=== PATIENT | female | born 1990 | race Caucasian/White ===

== ENCOUNTER 2025-01-01 21:50 | Observation (INO) | payer MEDICAID, SELFPAY ==
[2025-01-01 21:52] VITALS: BP 141/89; PULSE 94; RESP 20; TEMP 36.8; O2SAT 99; BMI 32.8
--- OUTSIDE RECORDS SUMMARY | 2025-01-01 22:12 | XMS_ITS | Clinical Summary ---
Author Organization [employer] [facility] Address [address] [place] [address] Phone Care Team Providers Care Shingle Cutter Name Role Phone Unavailable Unavailable Conditions or Problems No information available. Medications No information available. Medications Administered No information available. Allergies, Adverse Reactions, Alerts No information available. Results No information available. Plan of Care No information available. Procedures No information available. Vital Signs No information available. Immunizations No information available. Advance Directives No information available.
--- OUTSIDE RECORDS SUMMARY | 2025-01-01 22:13 | XMS_ITS | Clinical Summary ---
Author Organization Healthcare Address [address] [place] [address] Care Team Providers Care Vice President Diversity Name Role Phone Tonie Sanchez APRN Primary Care Provider Family History Medical History Relation Name Comments Depression Father Hypertension Father Lung disease Father Other cancer Father Stroke Father Relation Name Status Comments Father Social History Tobacco Use Types Packs/Day Years Used Date Smoking Tobacco: Every Day Alcohol Use Standard Drinks/Week Comments Yes 0 (1 standard drink = 0.6 oz pur e alcohol) Comments Unknown Sex and Gender Information Value Date Recorded Sex Assigned at Not on file Legal Sex Female 8:30 PM EDT Gender Identity Not on file Sexual Orientation Not on file Last Filed Vital Signs Vital Sign Reading Time Taken Comments Blood Pressure - - Pulse - - Temperature - - Respiratory Rate - - Oxygen Saturation - - Inhaled Oxygen Concentration - - Weight 66 kg (145 lb 8.1 oz) 01/22/2017 10:27 AM EDT Height 165.1 cm (5' 5 ) 01/22/2017 10:27 AM EDT Body Mass Index 24.21 01/22/2017 10:27 AM EDT Plan of Treatment Not on file Care Teams Vice President Diversity Relationship Specialty Start Date End Date Tonie Sanchez APRN [address] [place] [address] PCP - General 08/31/20
--- OUTSIDE RECORDS SUMMARY | 2025-01-01 22:14 | XMS_ITS | Clinical Summary ---
Author Organization [facility] Address [address] [place] [address] Care Team Providers Care Quill Reamer Name Role Phone None, Physician Primary Care Provider Unavailabl e Allergies Active Allergy Reactions Criticality Noted Date Comments Aripiprazole 04/17/2013 Aspirin 04/17/2013 Amoxicillin-Pot Clavulanate 04/17/20 13 Iodinated Contrast Media 04/17/2013 [place] 04/17/2013 Quetiapine Fumerate 04/17/2013 Sulfa Antibiotics 04/17/2013 Medications albuterol (PROVENTIL HFA;VENTOLIN HFA) 108 (90 BASE) MCG/ACT inhaler Inhale 2 puffs into the lungs every 6 (six) hours as needed. Active Social History Tobacco Use Types Packs/Day Years Used Date Smoking Tobacco: Every Day Cigarettes Alcohol Use Standard Drinks/Week Comments No 0 (1 standard drink = 0.6 oz pur e alcohol) Comments No Sex and Gender Information Value Date Recorded Sex Assigned at Not on file Legal Sex Female 10:31 AM EST Gender Identity Not on file Sexual Orientation Not on file Last Filed Vital Signs Vital Sign Reading Time Taken Comments Blood Pressure 119/73 10/30/2013 4:00 PM EDT Pulse 89 10/30/2013 4:00 PM EDT Temperature 36.9 C (98.4 F) 10/30/2013 4:00 PM EDT Respiratory Rate 18 10/30/2013 4:00 PM EDT Oxygen Saturation 99% 04/17/2013 2:08 PM EST Inhaled Oxygen Concentration - - Weight 68 kg (150 lb) 04/17/2013 10:33 AM EST Height 165.1 cm (5' 5 ) 04/17/2013 10:33 AM EST Body Mass Index 24.96 04/17/2013 10:33 AM EST Plan of Treatment Health Maintenance Due Date Last Done Comments Hepatitis B (HepB) Vaccine ( 1 of 3 - 19+ 3-dose series) 01/03/2008 Tdap/Td Vaccine >11 yo (1 - Tdap) 01/03/2008 Cervical Cancer Screening 2010 HPV Vaccine (1 - 3-dose SCDM series) 01/03/2016 Annual SDOH Screening 04/20/2024 Influenza Vaccine (#1) 2024 Haemophilus Influenzae Type B (Hib) Vaccine Aged Out No longer eligible b ased on patient's age to complete this topic Hepatitis A (HepA) Vaccine Aged Out N o longer eligible based on patient's age to complete this topic Meningococcal ACWY Aged Out No longer eligible based on patient's age to complete this topic Pneumococcal Vaccines 6-49 yo Risk Aged Out No longer eligible based on patient's age to complete this topic Polio (IPV) Aged Out No longer eligi ble based on patient's age to complete this topic Rotavirus (RV) Vaccine Aged Out No lo nger eligible based on patient's age to complete this topic Insurance [facility] [place] [address] Care Teams Quill Reamer Relationship Specialty Start Date End Date None, Physician PCP - General 04/17/13
--- OUTSIDE RECORDS SUMMARY | 2025-01-01 22:14 | XMS_ITS | Clinical Summary ---
Author Organization [facility] Address [address] [place] [address] Care Team Providers Care Papeterie Table Assembler Name Role Phone Tonie Sanchez APRN Primary Care Provider [phone] Allergies Active Allergy Reactions Criticality Noted Date Comments Aripiprazole 01/09/2017 Lorazepam 01/09/2017 Amoxicillin-Pot Clavulanate 01/10/20 17 Contrast Dye (Echo Or Unknown Ct/Mr) 01/09/2017 and IV Lurasidone Hcl 01/09/2017 [place] 01/09/2017 Pertussis Vaccines 01/09/2017 Promethazine 01/09/2017 Saline 01/09/2017 Quetiapine Fumarate 01/09/2017 Sulfa Antibiotics 01/09/2017 Medications diazePAM (VALIUM) 2 MG tablet Take 2 mg by mouth 2 (Two) Times a Day As Needed for Anxiety. Active sertraline (ZOLOFT) 100 MG tablet Take 100 mg by mouth Daily. Active lamoTRIgine (LaMICtal) 100 MG tablet Take 100 mg by mouth Daily. Active Active Problems No known active problems Family History Medical History Relation Name Comments Alcohol abuse Father Cirrhosis Father of the liver Diabetes Mother Hyperlipidemia Mother Hypertension Mother Stroke Mother ADD / ADHD Sister Bipolar disorder Sister Relation Name Status Comments Father Alive Mother Alive Sister Alive blood transfusi on Social History Tobacco Use Types Packs/Day Years Used Date Smoking Tobacco: Every Day Cigarettes Smokeless Tobacco: Never Comments:smokes 1-2 PPD Alcohol Use Standard Drinks/Week Comments No 0 (1 standard drink = 0.6 oz pur e alcohol) Abuse Screen Answer Date Recorded Unsafe at Home or Work/School Not on file Feels Threatened by Someone? Not on file 11/2022 Does Anyone Keep You from Co ntacting Others or Doint Things Outside the Home? Not on file 01/25/2023 Physical Sign of Abuse Present Not on file 1 Housing Stability Answer Date Recorded Current Living Arrangements Not on file 11/2022 Potentially Unsafe Housing Conditions Not on delfino e 01/25/2023 Family and Community Support Answer Cedrick e Recorded Help with Day-to-Day Activities Not on file 01/25/2023 Lonely or Isolated Not on file 01/25/2023 Employment Answer Date Recorded Do you want help finding or keeping work or a tonya b? Not on file 01/25/2023 Disabilities Answer Date Recorded Concentrating, Remembering, or Making Decisions Difficulty Not on file 01/25/2023 Doing Errands Independently Difficulty Not on fi le 01/25/2023 Education Answer Date Recorded Help with school or training? Not on file Preferred Language Not on file 01/25/2023 Comments Unknown Sex and Gender Information Value Date Recorded Sex Assigned at Not on file Legal Sex Female 10:53 AM EDT Gender Identity Not on file Sexual Orientation Not on file Last Filed Vital Signs Vital Sign Reading Time Taken Comments Blood Pressure 124/76 01/09/2017 12:59 PM EDT Pulse 63 01/09/2017 12:59 PM EDT Temperature - - Respiratory Rate - - Oxygen Saturation - - Inhaled Oxygen Concentration - - Weight 66.2 kg (146 lb) 01/09/2017 12:59 PM EDT Height 165.1 cm (5' 5 ) 01/09/2017 12:59 PM EDT Body Mass Index 24.3 01/09/2017 12:59 PM EDT Plan of Treatment Health Maintenance Due Date Last Done Comments Annual Gynecologic Pelvic an d Breast Exam 1989 TDAP/TD VACCINES (1 - Tdap) 01/03/2008 ANNUAL PHYSICAL 01/09/2017 HEPATITIS C SCREENING 01/09/2017 COVID-19 Vaccine (2023-2 5 season) 2024 INFLUENZA VACCINE 01/18/2025 Pneumococcal Vaccine 0-49 Aged Out No longer eligible based on patient's age to complete this topic Care Teams Papeterie Table Assembler Relationship Specialty Start Date End Date Tonie Sanchez APRN [address] [place] [address] PCP - General Family Medicine 01/02/17
[2025-01-01 22:23] VITALS: BP 121/92; PULSE 100; RESP 13; O2SAT 100
--- NOTE | 2025-01-01 22:32 | CT_ITS ---
PROCEDURE INFORMATION: Exam: CT Abdomen And Pelvis Without Contrast Exam date and time: 01/01/2025 11:19 PM Age: 34 years old Clinical indication: Abdominal pain; Periumbilical; Additional info: Diffuse pain worse periumbilical TECHNIQUE: Imaging protocol: Computed tomography of the abdomen and pelvis without contrast. Radiation optimization: All CT scans at this facility use at least one of these dose optimization techniques: automated exposure control; mA and/or kV adjustment per patient size (includes targeted exams where dose is matched to clinical indication); or iterative reconstruction. COMPARISON: No relevant prior studies available. FINDINGS: Liver: Unremarkable. No mass. Gallbladder and biliary ducts: Unremarkable. No calcified stones. No ductal dilation. Pancreas: Unremarkable. No ductal dilation. Spleen: Unremarkable. No splenomegaly. Adrenal glands: Unremarkable. No mass. Kidneys and ureters: No nephroureterolithiasis. No hydronephrosis. Stomach and bowel: Nonobstructive fluid-filled stomach, small and large bowel loops Appendix: Appendix mildly distended measuring up to 0.9 cm with equivocal periappendiceal fat stranding. Intraperitoneal space: Unremarkable. No free air. No significant fluid collection. Vasculature: Unremarkable. No abdominal aortic aneurysm. Lymph nodes: Reactive shotty mesenteric lymph nodes. Urinary bladder: Unremarkable as visualized. Reproductive: Unremarkable as visualized. Bones/joints: Unremarkable. No acute fracture. Soft tissues: Unremarkable. IMPRESSION: Appendix with mild distension with equivocal periappendiceal fat stranding. Fluid-filled appendix from secondary low-grade gastroenterocolitis versus early appendicitis in differential considerations. Appendiceal mucosal not evaluated secondary to with holding of intravenous contrast.
[2025-01-01 22:45] LABS: Microscopic, Urine URINE MICROSCOPIC (MICROSCOPIC)
--- NOTE | 2025-01-01 22:51 | HMH.EDGENADL ---
Discharge Plan Disposition Patient Disposition: Admitted Condition: Fair Clinical Impressions Clinical Impression: Acute appendicitis Discharge ED Provider: Sid Bolivar General Adult HPI <Sid Bolivar MD - Last Filed: 01/01/25 23:29> General Chief complaint: PAIN Stated complaint: abdominal pain ,back pain Time Seen by Provider: 01/01/25 22:18 Mode of Arrival: Ambulatory Source of Information: Patient Description of Symptoms (Recalled from ER Triage Doc. by RN): yury presents to the ED for complaints of abdominal pain that starts around her umbilicus, and radiates to her bilateral flanks. patient states after she eats she feels like she is gonna pass out. patient stated the near-syncope started today. patient states she feels like shes been stuck in an oven . History of Present Illness HPI narrative: Patient is a 34-year-old female with past medical history of schizophrenia on medical therapy who presents emergency department for evaluation of abdominal pain. Onset was acute over the last few days. Minimal bowel movement in the last few days she normally has 1 daily. Abdominal pain is periumbilical radiating to her flanks. No dysuria. Abdominal surgical history of previous cholecystectomy. No chest pain reported. No vomiting. No other acute complaints at this time. Please note that above description of symptoms, in this electronic medical record under categorization of recalled from ER triage doctor by RN are reflective of an initial nursing assessment, however, is not reflective of my full history and physical exam that was personally taken and clarified. Consequentially, this preceding description of symptoms, which may include the patient's categorized chief complaint in the EMR, do not reflect my personal clinical impression, and the ultimate description of history of present illness and patient stated complaints should be deferred to this section of the note. Unless stated otherwise or congruent with this section of the note, additional signs, symptoms, or incongruence should be interpreted as inaccurate with my clinical impression. Related Data Allergies Allergy/AdvReac Type Severity Reaction Status Date / Time amoxicillin (AMOXICILLIN) Allergy Unknown Unknown Verified 01/01/25 22:39 allergy reaction aspirin (ASPIRIN) Allergy Unknown Unknown Verified 01/01/25 22:39 allergy reaction clavulanic acid (CLAVULANIC Allergy Unknown Unknown Verified 01/01/25 22:39 ACID) allergy reaction iodine (IODINE) Allergy Unknown Unknown Verified 01/01/25 22:39 allergy reaction lithium (LITHIUM) Allergy Unknown Unknown Verified 01/01/25 22:39 allergy reaction oxycodone (OXYCODONE) Allergy Unknown Unknown Verified 01/01/25 22:39 allergy reaction pertussis vaccine,adsorbed Allergy Unknown Unknown Verified 01/01/25 22:39 (PERTUSSIS VACCINE,ADSORBED) allergy reaction promethazine (PROMETHAZINE) Allergy Unknown Unknown Verified 01/01/25 22:39 allergy reaction quetiapine (QUETIAPINE) Allergy Unknown Unknown Verified 01/01/25 22:39 allergy reaction Sulfa (Sulfonamide Allergy Unknown Unknown Verified 01/01/25 22:39 Antibiotics) (SULFA allergy (SULFONAMIDE ANTIBIOTICS)) reaction tetracycline (TETRACYCLINE) Allergy Unknown Unknown Verified 01/01/25 22:39 allergy reaction PFSH <Sid Bolivar MD - Last Filed: 01/01/25 23:29> PFSH Disclaimer: The information contained in this section may have been updated after the patient was seen, as this information can be updated by other users. Social History (Updated 01/01/25 @ 23:29 by Sid Bolivar MD) Smoking Status: Current every day smoker alcohol intake: never current occupational status: other Travel in the last 8 weeks?: None Have you lived/traveled outside US in past 30 days?: No Contact w/someone who lives/traveled outside US past 30 days?: No Exposure to someone with infectious disease in past 14 days?: No Do you have a fever (greater than 100.4 F or 38 C)?: No Have you tested positive for COVID-19?: No Exposed to someone with COVID-19 in past 14 days?: No Do you have a sore throat?: No Do you have a cough?: No Do you have any weakness?: No Do you have any diarrhea?: No Are you experiencing any unusual bleeding?: No Do you have any muscle aches/pain?: No Do you have any abdominal pain?: No Are you experiencing loss of taste or smell?: No <Sid Bolivar MD - Last Filed: 01/01/25 23:29> ROS Obtained: Yes Systems reviewed as appropriate & no additional complaints except as documented Physical Exam <Sid Bolivar MD - Last Filed: 01/01/25 23:29> General General appearance: alert Head Head exam: atraumatic and normocephalic Eye Eye exam: Present PERRL and EOMI ENT ENT exam: Present mucous membranes moist Neck Neck exam: Present normal inspection Chest Chest inspection: Present normal inspection and symmetric chest wall rise Respiratory Respiratory exam: Present normal lung sounds bilaterally; Absent respiratory distress Cardiovascular Cardiovascular exam: Present regular rate and normal rhythm Abdominal Exam Abdominal exam: Present soft and tenderness (Mild, diffuse); Absent guarding or rebound Extremities Exam Extremities exam: Present normal inspection Neurological Exam Neurological exam: Present alert Psychiatric Psychiatric exam: Present normal affect Skin Skin exam: Present warm and dry Medical Decision Making <Sid Bolivar MD - Last Filed: 01/01/25 23:29> Medical Records Screening: Per USPSTF and CDC recommendations, given the prevalence of disease in our region, it is our hospital?s policy to screen for HIV and viral Hepatitis for all patients aged 18 and over and those with ongoing risk factors. [place] Inquiry Pt receiving controlled substance: No Vital Signs: 01/01/25 21:52 01/01/25 22:23 Temperature 98.2 F Temperature Source Temporal Artery Scan Pulse Rate 100 H Pulse Rate [Right Radial] 94 H Respiratory Rate 20 13 Blood Pressure 121/92 H Blood Pressure [Right Arm] 141/89 H Blood Pressure Mean [Right Arm] 106 Blood Pressure Source [Right Arm] Automatic Cuff Blood Pressure Position [Right Arm] Sitting 02 Sat by Pulse Oximetry 99 100 Oxygen Delivery Method Room Air Room Air Lab Data Lab Results 01/01/25 22:06: Urine Color Yellow, Urine Appearance Clear, Urine pH 6.0, Ur Specific [place] >= 1.030, Urine Protein Trace, Urine Glucose (UA) Negative, Urine Ketones Trace, Urine Blood Negative, Urine Nitrate Negative, Urine Bilirubin 2+ A, Urine Urobilinogen 0.2, Ur Leukocyte Esterase Negative, Urine RBC None, Urine WBC 5-10, Ur Squamous Epith Cells 10-20, Urine Bacteria 2+, Urine HCG, Qual Negative 01/01/25 22:52: WBC 5.7, RBC 4.59, Hgb 13.4, Hct 39.4, MCV 85.8, MCH 29.2, MCHC 34.0, RDW 13.4, Plt Count 285, MPV 10.8 H, Neut % (Auto) 39.3, Lymph % (Auto) 48.1, [place] % (Auto) 10.6 H, Eos % (Auto) 1.4, Baso % (Auto) 0.4, Neut # (Auto) 2.2, Lymph # (Auto) 2.7, [place] # (Auto) 0.6, Eos # (Auto) 0.1, Baso # (Auto) 0.0, Sodium 140, Potassium 2.8 L*, Chloride 105, Carbon Dioxide 25, Anion Gap 12.8, BUN 7, Creatinine 0.90, Estimated Creat Clear 123, Estimated GFR 71, Est GFR ( Amer) 86, Glucose 104 H, Calcium 9.1, Total Bilirubin 0.5, AST 49 H, ALT 42, Alkaline Phosphatase 63, Troponin I < 0.01, Total Protein 7.7, Albumin 4.5, Globulin 3.2, Albumin/Globulin Ratio 1.4, Lipase 53 01/01/25 22:52 01/01/25 22:52 Orders (Tests/Meds): ED MEDICATIONS Generic Name Dose Route Start Last Admin Trade Name Freq PRN Reason Stop Dose Admin Metronidazole 500 mg in 100 mls @ 100 mls/hr 01/02/25 00:31 Flagyl 500mg/100ml Ivpb IV 01/02/25 01:30 ONCE ONE Discontinued Medications Generic Name Dose Route Start Last Admin Trade Name Freq PRN Reason Stop Dose Admin Lactated Ringer's 1,000 mls @ 999 mls/hr 01/01/25 22:27 01/01/25 23:05 Lactated Ringer's 1000 Ml Bag IV 01/01/25 23:27 999 mls/hr .Q1H1M ONE Administration Cefepime HCl 2 gm/ Sodium 100 mls @ 200 mls/hr 01/02/25 00:31 01/02/25 01:03 Chloride IV 01/02/25 01:00 200 mls/hr ONCE ONE Administration Morphine Sulfate 4 mg 01/01/25 22:27 01/01/25 23:05 Morphine 4mg/Ml Syringe IV 01/01/25 22:28 4 mg ONCE ONE Administration Ondansetron HCl 4 mg 01/01/25 22:27 01/01/25 23:05 Ondansetron 4mg/2ml Vial IV 01/01/25 22:28 4 mg ONCE ONE Administration Potassium Chloride 60 meq 01/01/25 23:38 01/01/25 23:43 Potassium Chloride 20meq Tab PO 01/01/25 23:39 60 meq ONCE ONE Administration ORDERS Category Date Time Status CT abdomen pelvis wo con Stat Cat Scan 01/01/25 22:32 Completed CBC w/Auto Diff [Complete Blood Count Auto Diff] Stat Lab 01/01/25 22:52 Completed CMP [Comprehensive Metabolic Panel] Stat Lab 01/01/25 22:52 Completed Lipase Stat Lab 01/01/25 22:52 Completed Trop I [Troponin I] Stat Lab 01/01/25 22:52 Completed UA [Urinalysis and Microscopic] Stat Lab 01/01/25 22:06 Completed Urine , HCG Qual. Stat Lab 01/01/25 22:06 Completed Urine Culture Stat Micro 01/01/25 22:06 Received EKG Request [ECG Request] Stat Y 01/01/25 23:06 Ordered Medical Decision Narrative: Patient is a 34-year-old female with past medical history of scrota above presents emergency department for evaluation of abdominal pain. Patient is hemodynamically stable nontoxic-appearing upon arrival, afebrile. Patient has a mild periumbilical tenderness, no rebound, no guarding. Differential clues incomplete bowel obstruction, gastroenteritis, urinary tract infection, among others. Workup will be conducted with hematologic labs, CT abdomen pelvis without IV contrast given her history of contrast allergy, urinalysis. Initial interventions include pain control, Zofran, crystalloid bolus. Workup was largely pending at time of transfer of care to the oncoming physician, Dr. Lobo. <Brett Lobo MD - Last Filed: 01/02/25 01:25> Vital Signs: 01/01/25 21:52 01/01/25 22:23 Temperature 98.2 F Temperature Source Temporal Artery Scan Pulse Rate 100 H Pulse Rate [Right Radial] 94 H Respiratory Rate 20 13 Blood Pressure 121/92 H Blood Pressure [Right Arm] 141/89 H Blood Pressure Mean [Right Arm] 106 Blood Pressure Source [Right Arm] Automatic Cuff Blood Pressure Position [Right Arm] Sitting 02 Sat by Pulse Oximetry 99 100 Oxygen Delivery Method Room Air Room Air Lab Data Lab Results 01/01/25 22:06: Urine Color Yellow, Urine Appearance Clear, Urine pH 6.0, Ur Specific [place] >= 1.030, Urine Protein Trace, Urine Glucose (UA) Negative, Urine Ketones Trace, Urine Blood Negative, Urine Nitrate Negative, Urine Bilirubin 2+ A, Urine Urobilinogen 0.2, Ur Leukocyte Esterase Negative, Urine RBC None, Urine WBC 5-10, Ur Squamous Epith Cells 10-20, Urine Bacteria 2+, Urine HCG, Qual Negative 01/01/25 22:52: WBC 5.7, RBC 4.59, Hgb 13.4, Hct 39.4, MCV 85.8, MCH 29.2, MCHC 34.0, RDW 13.4, Plt Count 285, MPV 10.8 H, Neut % (Auto) 39.3, Lymph % (Auto) 48.1, [place] % (Auto) 10.6 H, Eos % (Auto) 1.4, Baso % (Auto) 0.4, Neut # (Auto) 2.2, Lymph # (Auto) 2.7, [place] # (Auto) 0.6, Eos # (Auto) 0.1, Baso # (Auto) 0.0, Sodium 140, Potassium 2.8 L*, Chloride 105, Carbon Dioxide 25, Anion Gap 12.8, BUN 7, Creatinine 0.90, Estimated Creat Clear 123, Estimated GFR 71, Est GFR ( Amer) 86, Glucose 104 H, Calcium 9.1, Total Bilirubin 0.5, AST 49 H, ALT 42, Alkaline Phosphatase 63, Troponin I < 0.01, Total Protein 7.7, Albumin 4.5, Globulin 3.2, Albumin/Globulin Ratio 1.4, Lipase 53 Orders (Tests/Meds): ED MEDICATIONS Generic Name Dose Route Start Last Admin Trade Name Freq PRN Reason Stop Dose Admin Metronidazole 500 mg in 100 mls @ 100 mls/hr 01/02/25 00:31 Flagyl 500mg/100ml Ivpb IV 01/02/25 01:30 ONCE ONE Discontinued Medications Generic Name Dose Route Start Last Admin Trade Name Freq PRN Reason Stop Dose Admin Lactated Ringer's 1,000 mls @ 999 mls/hr 01/01/25 22:27 01/01/25 23:05 Lactated Ringer's 1000 Ml Bag IV 01/01/25 23:27 999 mls/hr .Q1H1M ONE Administration Cefepime HCl 2 gm/ Sodium 100 mls @ 200 mls/hr 01/02/25 00:31 01/02/25 01:03 Chloride IV 01/02/25 01:00 200 mls/hr ONCE ONE Administration Morphine Sulfate 4 mg 01/01/25 22:27 01/01/25 23:05 Morphine 4mg/Ml Syringe IV 01/01/25 22:28 4 mg ONCE ONE Administration Ondansetron HCl 4 mg 01/01/25 22:27 01/01/25 23:05 Ondansetron 4mg/2ml Vial IV 01/01/25 22:28 4 mg ONCE ONE Administration Potassium Chloride 60 meq 01/01/25 23:38 01/01/25 23:43 Potassium Chloride 20meq Tab PO 01/01/25 23:39 60 meq ONCE ONE Administration ORDERS Category Date Time Status CT abdomen pelvis wo con Stat Cat Scan 01/01/25 22:32 Completed CBC w/Auto Diff [Complete Blood Count Auto Diff] Stat Lab 01/01/25 22:52 Completed CMP [Comprehensive Metabolic Panel] Stat Lab 01/01/25 22:52 Completed Lipase Stat Lab 01/01/25 22:52 Completed Trop I [Troponin I] Stat Lab 01/01/25 22:52 Completed UA [Urinalysis and Microscopic] Stat Lab 01/01/25 22:06 Completed Urine , HCG Qual. Stat Lab 01/01/25 22:06 Completed Urine Culture Stat Micro 01/01/25 22:06 Received EKG Request [ECG Request] Stat Y 01/01/25 23:06 Ordered Medical Decision Narrative: Patient is a 34-year-old female with past medical history of scrota above presents emergency department for evaluation of abdominal pain. Patient is hemodynamically stable nontoxic-appearing upon arrival, afebrile. Patient has a mild periumbilical tenderness, no rebound, no guarding. Differential clues incomplete bowel obstruction, gastroenteritis, urinary tract infection, among others. Workup will be conducted with hematologic labs, CT abdomen pelvis without IV contrast given her history of contrast allergy, urinalysis. Initial interventions include pain control, Zofran, crystalloid bolus. Workup was largely pending at time of transfer of care to the oncoming physician, Dr. Lobo. Lobo: Upon my assumption of care patient is stable and resting comfortably. I agree with the assessment and plan from Dr. Bolivar. I reviewed labs which demonstrate no leukocytosis or anemia, patient has hypokalemia treated with oral repletion. Troponin undetectably low. UA contaminated with squamous cells, no findings of infection. CT abdomen pelvis personally interpreted does not demonstrate significant stool burden, see radiology read for final interpretation which comments and findings concerning for appendicitis with appendiceal dilation and periappendiceal fat stranding. Cefepime and Flagyl ordered. I reviewed this with the patient, she is willing to be admitted here. I discussed this case with Dr. Werner who recommended admission for antibiotics and surgery in the morning. I discussed this case with the hospitalist who graciously except the patient for admission. She was admitted in stable condition. Critical Care <Sid Bolivar MD - Last Filed: 01/01/25 23:29> Critical Care Time Critical Care Time: No
[2025-01-01 23:05] LABS: Color,Urine YELLOW (Yellow); Glucose,Urine (UA) Negative (Negative); Ketones,Urine TRACE (Negative); Leukocyte Esterase,Urine Negative (Negative); PH,Urine 6.0 (5.0-8.5); Protein,Urine TRACE (Negative); Specific Gravity, Urine >= 1.030 (1.005-1.030); Urobilinogen,Urine 0.2 EU/dl (0.2)
[2025-01-01] MEDS: MORPHINE 4MG/ML SYRINGE 4 MG IV (23:05)
[2025-01-01] MEDS: ONDANSETRON 4MG/2ML VIAL 4 MG IV (23:05)
[2025-01-01] MEDS: LACTATED RINGERS 1000ML 1,000 ML 999 ML IV (23:05)
[2025-01-01 23:06] LABS: Hematocrit 39.4 % (37.0-47.0); Hemoglobin 13.4 g/dL (12.2-16.2); Immature Granulocytes % 0.2 %; Mean Corpuscular HGB Conc 34.0 g/dL (31.8-35.4); Mean Corpuscular Hemoglobin 29.2 pg (27.0-31.2); Mean Corpuscular Volume 85.8 fl (81-99); Nucleated Red Blood Cells % 0 %; Platelet Count 285 K/mm3 (142-424); Red Blood Count 4.59 M/mm3 (4.20-5.40); Red Cell Distribution Width-SD 41.9 fL; White Blood Count 5.7 K/mm3 (4.8-10.8)
--- NOTE | 2025-01-01 23:06 | ECG_ITS ---
APPROVED REPORT Exam: Resting ECG HR:71 bpm ECG Measurements Heart Rate 71 AXES IL 142 P 72 QRSd 85 QRS 79 QT 417 T 58 QTc 440 Conclusion SINUS RHYTHM NONSPECIFIC ST & T-WAVE ABNORMALITY No STEMI Electronically signed by : MICHAEL KAN, 01/02/2025 03:37:32
[2025-01-01 23:07] LABS: Bilirubin,Urine 2+ (Negative)
[2025-01-01 23:08] LABS: Albumin Level 4.5 g/dl (3.5-5.0); Chloride 105 mmol/L (98-107); Sodium 140 mmol/L (136-145)
[2025-01-01 23:08] LABS: Bacteria,Urine 2+ /lpf
[2025-01-01 23:09] LABS: Urine Pregnancy, HCG Qual. Negative (Negative)
[2025-01-01 23:11] LABS: Alanine Aminotransferase 42 U/L (12-78); Albumin/Globulin Ratio 1.4 (1.1-1.8); Alkaline Phosphatase 63 U/L (38-126); Anion Gap 12.8 mEq/L (5-15); Aspartate Amino Transferase 49 U/L (14-36); Bilirubin,Total 0.5 mg/dl (0.2-1.3); Blood Urea Nitrogen 7 mg/dl (7-17); Carbon Dioxide 25 mmol/L (22.0-30.0); Creatinine Clearance Estimated 123 mL/min (50-200); Creatinine,Serum 0.90 mg/dl (0.52-1.04); Estimated Glomerular Filt Rate 71 ml/min (>60); GFR (African American) 86 ML/MIN (>60); Globulin 3.2 g/dL (1.3-3.2); Lipase 53 U/L (23-300); Total Protein,Serum 7.7 g/dl (6.3-8.2)
[2025-01-01 23:12] LABS: Calcium 9.1 mg/dl (8.4-10.2); Glucose 104 mg/dl (74-100)
[2025-01-01 23:13] LABS: Potassium 2.8 mmoL/L (3.5-5.1)
[2025-01-01 23:34] LABS: Troponin I < 0.01 ng/ml (0.00-0.034)
[2025-01-01] MEDS: POTASSIUM CHLORIDE 20MEQ TAB 60 MEQ PO (23:43)
[2025-01-02] VITALS (17 sets, daily range): BP systolic 95–144; BP diastolic 58–86; PULSE 54–87; RESP 14–18; TEMP 36.4–38; O2SAT 95–100; BMI 32.8
[2025-01-02] MEDS: CEFEPIME HCL 2 GM in 0.9 % SODIUM CHLORIDE 100 ML IV (01:03)
--- NOTE | 2025-01-02 01:38 | PC.NURSE ---
report called to Babita REZA
--- NOTE | 2025-01-02 02:08 | P.HP_ITS ---
<Statement entered by Luis Alberto Hartman MD - 01/02/25 12:10> Agree with the plan of care as outlined by the [employer]. History of Present Illness *Admission Date: 01/02/25 *Reason for visit:: Abdominal pain *History of present illness: This is a 35-year-old female with past medical history of schizophrenia and homelessness who presents emergency department today with complaints of 3 days of periumbilical pain. She reports associated poor p.o. intake and constipati on. Also endorses pain that radiates into her lower right and left quadrants. Denies any fever. Denies any melena or BRBPR. Emergency Department workup notable for potassium of 2.8.. CT abdomen notable forappendicitis with appendiceal dilatation and periappendiceal fat stranding.. Dr. Werner was consulted in the emergency department and recommends admission for IV antibiotics and likely surgery in AM. She is admitted to the hospital service at this time [facility] Disclaimer: The information contained in this section may have been updated after the patient was seen, as this information can be updated by other users. Social History (Updated 01/01/25 @ 23:29 by Sid Bolivar MD) Smoking Status: Current every day smoker alcohol intake: never current occupational status: other Travel in the last 8 weeks?: None Have you lived/traveled outside US in past 30 days?: No Contact w/someone who lives/traveled outside US past 30 days?: No Exposure to someone with infectious disease in past 14 days?: No Do you have a fever (greater than 100.4 F or 38 C)?: No Have you tested positive for COVID-19?: No Exposed to someone with COVID-19 in past 14 days?: No Do you have a sore throat?: No Do you have a cough?: No Do you have any weakness?: No Do you have any diarrhea?: No Are you experiencing any unusual bleeding?: No Do you have any muscle aches/pain?: No Do you have any abdominal pain?: No Are you experiencing loss of taste or smell?: No Review of Systems Review of Systems Review of systems:: pertinent systems reviewed and negative unless documented below Review of systems (narrative): Negative except for HPI Meds Home Medications and Allergies New Prescriptions to Start Prescriptions: Allergies Allergy/AdvReac Type Severity Reaction Status Date / Time amoxicillin (AMOXICILLIN) Allergy Unknown Unknown Verified 01/01/25 22:39 allergy reaction aspirin (ASPIRIN) Allergy Unknown Unknown Verified 01/01/25 22:39 allergy reaction clavulanic acid (CLAVULANIC Allergy Unknown Unknown Verified 01/01/25 22:39 ACID) allergy reaction iodine (IODINE) Allergy Unknown Unknown Verified 01/01/25 22:39 allergy reaction lithium (LITHIUM) Allergy Unknown Unknown Verified 01/01/25 22:39 allergy reaction oxycodone (OXYCODONE) Allergy Unknown Unknown Verified 01/01/25 22:39 allergy reaction pertussis vaccine,adsorbed Allergy Unknown Unknown Verified 01/01/25 22:39 (PERTUSSIS VACCINE,ADSORBED) allergy reaction promethazine (PROMETHAZINE) Allergy Unknown Unknown Verified 01/01/25 22:39 allergy reaction quetiapine (QUETIAPINE) Allergy Unknown Unknown Verified 01/01/25 22:39 allergy reaction Sulfa (Sulfonamide Allergy Unknown Unknown Verified 01/01/25 22:39 Antibiotics) (SULFA allergy (SULFONAMIDE ANTIBIOTICS)) reaction tetracycline (TETRACYCLINE) Allergy Unknown Unknown Verified 01/01/25 22:39 allergy reaction Exam Data for Last 24 hours Vital signs and Labs for Last 24 Hours: Temp Pulse Resp BP Pulse Ox O2 Del Method 98.9 F 87 17 144/78 H 100 Room Air 01/02/25 01:39 01/02/25 01:39 01/02/25 01:39 01/02/25 01:39 01/01/25 22:23 01/02/25 01:39 Laboratory Results - last 24 hr 01/01/25 22:06: Urine Color Yellow, Urine Appearance Clear, Urine pH 6.0, Ur Specific [place] >= 1.030, Urine Protein Trace, Urine Glucose (UA) Negative, Urine Ketones Trace, Urine Blood Negative, Urine Nitrate Negative, Urine Bilirubin 2+ A, Urine Urobilinogen 0.2, Ur Leukocyte Esterase Negative, Urine RBC None, Urine WBC 5-10, Ur Squamous Epith Cells 10-20, Urine Bacteria 2+, Urine HCG, Qual Negative 01/01/25 22:52: WBC 5.7, RBC 4.59, Hgb 13.4, Hct 39.4, MCV 85.8, MCH 29.2, MCHC 34.0, RDW 13.4, Plt Count 285, MPV 10.8 H, Neut % (Auto) 39.3, Lymph % (Auto) 48.1, [place] % (Auto) 10.6 H, Eos % (Auto) 1.4, Baso % (Auto) 0.4, Neut # (Auto) 2.2, Lymph # (Auto) 2.7, [place] # (Auto) 0.6, Eos # (Auto) 0.1, Baso # (Auto) 0.0, Sodium 140, Potassium 2.8 L*, Chloride 105, Carbon Dioxide 25, Anion Gap 12.8, BUN 7, Creatinine 0.90, Estimated Creat Clear 123, Estimated GFR 71, Est GFR ( Amer) 86, Glucose 104 H, Calcium 9.1, Total Bilirubin 0.5, AST 49 H, ALT 42, Alkaline Phosphatase 63, Troponin I < 0.01, Total Protein 7.7, Albumin 4.5, Globulin 3.2, Albumin/Globulin Ratio 1.4, Lipase 53 I & O for Last 24 hours: Intake & Output 12/30/24 12/31/24 01/01/25 01/02/25 23:59 23:59 23:59 23:59 Weight 89.358 kg Constitutional Constitutional: no acute distress *Routine HEENT Exam Head: Present normocephalic Eye: Present EOMI and PERRL ENT: Present mucous membranes moist *Routine Neck Exam Neck: Present supple; Absent lymphadenopathy *Routine Respiratory Exam Respiratory: Present CTA bilaterally *Routine Cardiovascular Exam Cardiovascular: Present RRR *Routine Abdominal Exam Abdominal: Present soft and normoactive bowel sounds; Absent tenderness *Routine Rectal Exam Rectal:: deferred *Routine Genitalia Exam Genitalia:: deferred *Routine Extremities Exam Extremities: Absent cyanosis, clubbing or edema *Routine Skin Exam Skin: Present warm; Absent rash *Routine Neurological Exam Neurological: Present alert and oriented X3 Routine Psychiatric Exam Psychiatric: Present manic Assessment and Plan *Assessment and plan (1) Acute appendicitis: Status: Acute Category: Medical Code(s): K35.80 - Unspecified acute appendicitis (2) Schizophrenia: Status: Acute Category: Medical Code(s): F20.9 - Schizophrenia, unspecified Plan Admit to medicine #Abdominal pain #Acute appendicitis CT concerning for acute appendicitis given Appendiceal dilatation and follow-up Continue broad-spectrum antibiotic coverage with Flagyl Continue multimodal pain medication N.p.o. with ice chips Dr. Werner consulted, appreciate recommendations #Schizophrenia Patient reports on all medications but has stopped those recently. Appears to have slightly hellen at this time but no auditory or visual hallucinations. Continue patient's home trazodone and Cymbalta
--- NOTE | 2025-01-02 02:08 | PC.NURSE ---
Patient arrived to floor via wheelchair from ED at 02:05.
[2025-01-02] MEDS: MORPHINE 2MG/ML SYRINGE 2 MG IV ×2 (02:21→11:46)
[2025-01-02] MEDS: TRAZODONE 50MG TABLET 100 MG PO (02:28)
[2025-01-02] MEDS: diazePAM 5MG TABLET 5 MG PO (02:33)
[2025-01-02] MEDS: METRONIDAZ/SOD CHL 500 MG/100 ML PIGGYBACK 100 MG IV (02:35)
--- NOTE | 2025-01-02 04:18 | PC.NURSE ---
New admit this shift. Pt AOx4. Reports hx of schizophrenia. Home meds locked in [facility] representative room. Pt was anxious and agitated on arrival, which has been mostly resolved with prn medications. She is refusing her normal saline, but is okay with receiving her IV antibiotics. Pt is also refusing a bed alarm. Received benadryl d/t reported itching. A consult to case mgmt was put in d/t a positive social needs assessment. Pt states she does not have stable housing and [place] bridge. Pt is currently resting in bed with eyes open. Denies any additional needs at this time. Respirations even and unlabored. Bed is low, locked, and call light is in reach.
--- NOTE | 2025-01-02 06:03 | EXP.SURG.CON ---
History of Present Illness *Admission Date: 01/02/25 *Reason for visit:: Enthesitis *History of present illness: Patient is a 35-year-old female with past medical history of schizophrenia and homelessness with allergies to amoxicillin, aspirin, clavulanic acid, iodine, lithium, oxycodone, pertussis vaccine, promethazine, quetiapine, sulfa, tetracycline. She presents emergency department overnight with complaints of 3 days of periumbilical pain. She reports associated poor p.o. intake and constipation. Also endorses pain that radiates into her lower right and left quadrants. Emergency Department workup notable for potassium of 2.8. CT abdomen notable for appendicitis with appendiceal dilatation and periappendiceal fat stranding. Surgery was consulted in the emergency department and recommends admission for IV antibiotics and likely surgery in AM given the fact that the patient was hypokalemic and had just eaten prior to presentation and had findings of early uncomplicated appendicitis. She is admitted to the hospital service at this time. Final report on the CT scan reveals appendix with mild distention and equivocal periappendiceal fat stranding. Fluid-filled appendix from secondary low-grade gastroenterocolitis versus early appendicitis in differential considerations. Appendiceal mucosa not evaluated secondary to withholding of intravenous contrast. [facility] Disclaimer: The information contained in this section may have been updated after the patient was seen, as this information can be updated by other users. Social History (Updated 01/01/25 @ 23:29 by Sid Bolivar MD) Smoking Status: Current every day smoker alcohol intake: never current occupational status: other Travel in the last 8 weeks?: None Have you lived/traveled outside [place] in past 30 days?: No Contact w/someone who lives/traveled outside US past 30 days?: No Exposure to someone with infectious disease in past 14 days?: No Do you have a fever (greater than 100.4 F or 38 C)?: No Have you tested positive for COVID-19?: No Exposed to someone with COVID-19 in past 14 days?: No Do you have a sore throat?: No Do you have a cough?: No Do you have any weakness?: No Do you have any diarrhea?: No Are you experiencing any unusual bleeding?: No Do you have any muscle aches/pain?: No Do you have any abdominal pain?: No Are you experiencing loss of taste or smell?: No Meds Home Medications and Allergies Home Medications ?Medication ?Instructions ?Recorded ?Confirmed ?Type albuterol sulfate 90 mcg/actuation 2 puff inhalation Q6H PRN 01/02/25 01/02/25 History aerosol inhaler (Ventolin HFA) Shortness Of Breath Or Wheezing cyclobenzaprine 10 mg tablet 10 mg PO Q8H PRN Muscle Spasm 01/02/25 01/02/25 History duloxetine 60 mg capsule,delayed 60 mg PO DAILY 01/02/25 01/02/25 History release oxcarbazepine 300 mg tablet 300 mg PO BID 01/02/25 01/02/25 History pantoprazole 40 mg tablet,delayed 40 mg PO DAILY 01/02/25 01/02/25 History release propranolol 20 mg tablet 20 mg PO BID 01/02/25 01/02/25 History rimegepant 75 mg disintegrating 75 mg PO DAILYP PRN Migraine 01/02/25 01/02/25 History tablet (Nurtec ODT) Headache risperidone 3 mg tablet 3 mg PO BID 01/02/25 01/02/25 History trazodone 100 mg tablet 100 mg PO HS 01/02/25 01/02/25 History New Prescriptions to Start Prescriptions: Allergies Allergy/AdvReac Type Severity Reaction Status Date / Time amoxicillin (AMOXICILLIN) Allergy Unknown Unknown Verified 01/01/25 22:39 allergy reaction aspirin (ASPIRIN) Allergy Unknown Unknown Verified 01/01/25 22:39 allergy reaction clavulanic acid (CLAVULANIC Allergy Unknown Unknown Verified 01/01/25 22:39 ACID) allergy reaction iodine (IODINE) Allergy Unknown Unknown Verified 01/01/25 22:39 allergy reaction lithium (LITHIUM) Allergy Unknown Unknown Verified 01/01/25 22:39 allergy reaction oxycodone (OXYCODONE) Allergy Unknown Unknown Verified 01/01/25 22:39 allergy reaction pertussis vaccine,adsorbed Allergy Unknown Unknown Verified 01/01/25 22:39 (PERTUSSIS VACCINE,ADSORBED) allergy reaction promethazine (PROMETHAZINE) Allergy Unknown Unknown Verified 01/01/25 22:39 allergy reaction quetiapine (QUETIAPINE) Allergy Unknown Unknown Verified 01/01/25 22:39 allergy reaction Sulfa (Sulfonamide Allergy Unknown Unknown Verified 01/01/25 22:39 Antibiotics) (SULFA allergy (SULFONAMIDE ANTIBIOTICS)) reaction tetracycline (TETRACYCLINE) Allergy Unknown Unknown Verified 01/01/25 22:39 allergy reaction Exam (Inpt) Vital signs and Labs for Last 24 Hours: Temp Pulse Resp BP Pulse Ox O2 Del Method 97.9 F 74 16 133/78 96 Room Air 01/02/25 02:01/02/25 02:01/02/25 02:01/02/25 02:01/02/25 02:01/02/25 05:00 Laboratory Results - last 24 hr 01/01/25 22:06: Urine Color Yellow, Urine Appearance Clear, Urine pH 6.0, Ur Specific [place] >= 1.030, Urine Protein Trace, Urine Glucose (UA) Negative, Urine Ketones Trace, Urine Blood Negative, Urine Nitrate Negative, Urine Bilirubin 2+ A, Urine Urobilinogen 0.2, Ur Leukocyte Esterase Negative, Urine RBC None, Urine WBC 5-10, Ur Squamous Epith Cells 10-20, Urine Bacteria 2+, Urine HCG, Qual Negative 01/01/25 22:52: WBC 5.7, RBC 4.59, Hgb 13.4, Hct 39.4, MCV 85.8, MCH 29.2, MCHC 34.0, RDW 13.4, Plt Count 285, MPV 10.8 H, Neut % (Auto) 39.3, Lymph % (Auto) 48.1, Hooker % (Auto) 10.6 H, Eos % (Auto) 1.4, Baso % (Auto) 0.4, Neut # (Auto) 2.2, Lymph # (Auto) 2.7, Hooker # (Auto) 0.6, Eos # (Auto) 0.1, Baso # (Auto) 0.0, Sodium 140, Potassium 2.8 L*, Chloride 105, Carbon Dioxide 25, Anion Gap 12.8, BUN 7, Creatinine 0.90, Estimated Creat Clear 123, Estimated GFR 71, Est GFR ( Amer) 86, Glucose 104 H, Calcium 9.1, Total Bilirubin 0.5, AST 49 H, ALT 42, Alkaline Phosphatase 63, Troponin I < 0.01, Total Protein 7.7, Albumin 4.5, Globulin 3.2, Albumin/Globulin Ratio 1.4, Lipase 53 I & O for Labs for Last 24 Hours: Intake & Output 12/30/24 12/31/24 01/01/25 09/15/25 11:59 11:59 11:59 11:59 Intake Total 1200 / 1200 Balance 1200 / 1200 Weight 197 lb Constitutional: no acute distress Comments:: Limited exam reveals mild diffuse tenderness. Results Labs 01/02/25 07:45 01/02/25 07:45 Labs: Laboratory Results - last 24 hr 01/01/25 22:06: Urine Color Yellow, Urine Appearance Clear, Urine pH 6.0, Ur Specific [place] >= 1.030, Urine Protein Trace, Urine Glucose (UA) Negative, Urine Ketones Trace, Urine Blood Negative, Urine Nitrate Negative, Urine Bilirubin 2+ A, Urine Urobilinogen 0.2, Ur Leukocyte Esterase Negative, Urine RBC None, Urine WBC 5-10, Ur Squamous Epith Cells 10-20, Urine Bacteria 2+, Urine HCG, Qual Negative 01/01/25 22:52: WBC 5.7, RBC 4.59, Hgb 13.4, Hct 39.4, MCV 85.8, MCH 29.2, MCHC 34.0, RDW 13.4, Plt Count 285, MPV 10.8 H, Neut % (Auto) 39.3, Lymph % (Auto) 48.1, Hooker % (Auto) 10.6 H, Eos % (Auto) 1.4, Baso % (Auto) 0.4, Neut # (Auto) 2.2, Lymph # (Auto) 2.7, Hooker # (Auto) 0.6, Eos # (Auto) 0.1, Baso # (Auto) 0.0, Sodium 140, Potassium 2.8 L*, Chloride 105, Carbon Dioxide 25, Anion Gap 12.8, BUN 7, Creatinine 0.90, Estimated Creat Clear 123, Estimated GFR 71, Est GFR ( Amer) 86, Glucose 104 H, Calcium 9.1, Total Bilirubin 0.5, AST 49 H, ALT 42, Alkaline Phosphatase 63, Troponin I < 0.01, Total Protein 7.7, Albumin 4.5, Globulin 3.2, Albumin/Globulin Ratio 1.4, Lipase 53 Assessment and Plan *Assessment and plan (1) Acute appendicitis: Status: Acute Category: Medical Code(s): K35.80 - Unspecified acute appendicitis Plan I reviewed her CT scan images. Her stomach is full of food and her appendix is somewhat equivocal but likely consistent with early appendicitis. Plan to proceed with laparoscopic possible open appendectomy.
[2025-01-02 07:52] LABS: Hematocrit 37.0 % (37.0-47.0); Hemoglobin 12.3 g/dL (12.2-16.2); Immature Granulocytes % 0 %; Mean Corpuscular HGB Conc 33.2 g/dL (31.8-35.4); Mean Corpuscular Hemoglobin 29.1 pg (27.0-31.2); Mean Corpuscular Volume 87.5 fl (81-99); Nucleated Red Blood Cells % 0 %; Platelet Count 228 K/mm3 (142-424); Red Blood Count 4.23 M/mm3 (4.20-5.40); Red Cell Distribution Width-SD 43.8 fL; White Blood Count 4.0 K/mm3 (4.8-10.8)
--- NOTE | 2025-01-02 07:57 | HMH.PHAINT1 ---
Pharmacy Intervention Comments: HOME MEDICATION LIST VERIFIED USING LIST FROM OUTPATIENT PHARMACY
--- NOTE | 2025-01-02 08:25 | SW/DCPLANNER ---
Addendum entered by Chantal Pickard 01/02/25 11:50: Patient independent w/ therapy services. Original Note: I received a consult on this patient regarding homeless and social determinants of health. Patient refused all resources at this time and is not interested in any assistance.
[2025-01-02 08:33] LABS: Anion Gap 8.4 mEq/L (5-15); Blood Urea Nitrogen 6 mg/dl (7-17); Calcium 8.1 mg/dl (8.4-10.2); Carbon Dioxide 24 mmol/L (22.0-30.0); Chloride 109 mmol/L (98-107); Creatinine Clearance Estimated 137 mL/min (50-200); Creatinine,Serum 0.80 mg/dl (0.52-1.04); Estimated Glomerular Filt Rate 81 ml/min (>60); GFR (African American) 98 ML/MIN (>60); Glucose 91 mg/dl (74-100); Potassium 3.4 mmoL/L (3.5-5.1); Sodium 138 mmol/L (136-145)
--- NOTE | 2025-01-02 09:04 | P.PNANES_ITS ---
[facility] Disclaimer: The information contained in this section may have been updated after the patient was seen, as this information can be updated by other users. Social History (Updated 01/01/25 @ 23:29 by Sid Bolivar MD) Smoking Status: Current every day smoker alcohol intake: never substance use type: denies use current occupational status: other Travel in the last 8 weeks?: None [facility] Anesthesia Checklist Patient Identification Patient Identification: Arm Band Structural Data Admitted From: Inpatient Planned Operative Procedure/s: Laparoscopic Appendectomy Consent for Planned Operative Procedure(s) Verified: Yes Verified Documents: Surgical Consent and History and Physical NPO Status Verified Time NPO: 00:00 Additional verifications Anesthesia Reactions: No Airway Assessment Mallampati Score:: Class II C-Spine Mobility Assessed: Yes TMJ Mobility Assessed: Yes Dentition: Edentulous Neurological Assessment Level of Consciousness: Awake, Alert and Appropriate Anesthesia Plan Anesthesia Risk discussed: Yes Anesthesia Plan: Verified ASA Class: II Anesthesia Type: General
--- NOTE | 2025-01-02 09:37 | HMH.OTEV ---
OT Evaluation Rehab OT IP Evaluation Start: 01/02/25 03:07 Freq: ONCE Status: Active Protocol: Document 01/02/25 09:32 ROGELIO (Rec: 01/02/25 09:37 ROGELOI [id number]) Rehab OT IP Assessment Subjective History Per HPI: HPI narrative: Patient is a 34-year-old female with past medical history of schizophrenia on medical therapy who presents emergency department for evaluation of abdominal pain. Onset was acute over the last few days . Minimal bowel movement in the last few days she normally has 1 daily. Abdominal pain is periumbilical radiating to her flanks. No dysuria. Abdominal surgical history of previous cholecystectomy. No chest pain reported. No vomiting. No other acute complaints at this time. Please note that above description of symptoms, in this electronic medical record under categorization of recalled from ER triage doctor by RN are reflective of an initial nursing assessment, however, is not reflective of my full history and physical exam that was personally taken and clarified. Consequentially, this preceding description of symptoms, which may include the patient's categorized chief complaint in the EMR, do not reflect my personal clinical impression , and the ultimate description of history of present illness and patient stated complaints should be deferred to this section of the note. Unless stated otherwise or congruent with this section of the note, additional signs, symptoms, or incongruence should be interpreted as inaccurate with my clinical impression. Subjective I live in the camp. Pt supine in bed curled in blankets when therapy entered. Pt orient x3. Pt reported they live with friend in [place]. Pt reports ind in ADLs and IADLs. Pt reports they have no bed. Pt reports they are here for appendix surgery. Pt agreed to FM task. Pt went from supine to EOB ind and completed STS with Ind. Pt then completed FM task of 10 ft with Ind and no use of AD. Pt then went to EOB and went to supine position on side and wrapped back into blankets. Pt left with call light and all other needs within reach. Objective Patient Orientation Person,Place,Name Right Upper WFL Extremity Gross ROM Left Upper Extremity WFL Gross ROM Bed Mobility bed mobility-scooting,bed mobility - supine/sit Assist Level Independent Transfer Training Sit/Stand Transfer Assist Level Independent Chair Transfer Sit to/from Ambulatory Technique Decrease in No Endurance Rehab OT IP prob,goals,plan Problems Date of Evaluation: 01/02/25 Rehab Potential Rehab Potential Innapropriate for Skilled Therapy Discharge Plan OT Discharge Plan At this time, pt is at baseline and would not benefit from skilled acute OT services and interventions while admitted at [facility]. Once medically stable, pt is able to DC back to current living conditions once DC from [facility]. Eval Complexity Eval Charge Codes 95511 - Moderate Complexity PHYSICIAN CERTIFICATION: I certify the specified therapy services for Rica Polk are required, authorized, and reviewed every 30 days.
[2025-01-02] MEDS: CEFAZOLIN 2GM VIAL 2 GM (09:52)
[2025-01-02] MEDS: 0.9 % SODIUM CHLORIDE 100 ML IV (09:53)
[2025-01-02] MEDS: LIDOCAINE 1% 20ML MDV 20 ML (09:53)
[2025-01-02] MEDS: SODIUM CHLORIDE IRRIG SOLUTION 3,000 ML 200 ML IR (09:54)
--- NOTE | 2025-01-02 09:54 | HMH.PTEV ---
Physical Therapy Evaluation Rehab PT IP Evaluation Start: 01/02/25 03:07 Freq: ONCE Status: Active Protocol: Document 01/02/25 09:52 KATHY (Rec: 01/02/25 09:54 KATHY [id number]) Subjective/History History History Per H&P: This is a 35-year-old female with past medical history of schizophrenia and homelessness who presents emergency department today with complaints of 3 days of periumbilical pain. She reports associated poor p.o. intake and constipation. Also endorses pain that radiates into her lower right and left quadrants. Denies any fever. Denies any melena or BRBPR. Subjective Subjective Pt reports she lives in a camp with her old man . Pt usually IND with all mobility without AD use. [facility] How much help from another person do you currently need... Turning from your None back to your side while in a flat bed without using bedrails? Moving from lying on None back to sitting on the side of a flat bed without using bedrails? Moving to and from a None bed to a chair ( including a wheelchair)? Standing up from a None chair using your arms? (e.g., wheelchair, bedside chair) Walking in hospital None room? Climbing 3-5 steps None with a railing? Mobility Score 24 Mobility Level [place] [id number] Walk 250 feet or more Mobility Calculator Rehab PT IP Eval Objective Appearance Patient Behavior Appropriate Patient Orientation Person,Place Difficulty following none instructions Speech Pattern Clear Ambulation Patient Able to Yes Ambulate Ambulation Observation IP General Gait No Deviations/Normal Pattern Observation Ambulation Distance 30 (feet) Ambulation Assistive None Device Ambulation Ability Independent Balance Ability to Arise Able, w/o using arms Sitting Balance Steady, safe Standing Balance Narrow stance w/o support Dynamic Sitting Normal Balance Ability Dynamic Standing Normal Balance Ability Transfers Bed Transfer Ability Independent Chair Transfer Independent Ability Rehab PT IP prob,goals,plan Problems Date of Evaluation: 01/02/25 Rehab Potential Rehab Potential Innapropriate for Skilled Therapy Discharge Plan PT Discharge Plan Pt is IND with mobility and not appropriate for skilled acute care physical therapy. Eval Complexity Eval Charge Codes 87323 - Moderate Complexity PHYSICIAN CERTIFICATION: I certify the specified therapy services for Rica Polk are required, authorized, and reviewed every 30 days.
--- NOTE | 2025-01-02 10:10 | P.OP_ITS ---
Date of procedure: 01/02/25 Pre-op Diagnosis:: Appendicitis Post-op Diagnosis:: Same Procedure performed:: Laparoscopic appendectomy Surgeon:: Doug Werner MD [employer] OPERATOR:: Iggy Banda Anesthesia: CHINO Estimated blood loss (mL): 10 Operative findings:: He had a somewhat inflamed edematous indurated mildly erythematous appendix. This is consistent with early noncomplicated acute appendicitis. Operative note:: Consent was obtained patient was taken to the operating room. She was given preoperative intravenous antibiotics. In the operating was placed in a supine position. General anesthesia was induced via endotracheal tube. Mcfarland catheter was placed. Abdomen was prepped and draped in the standard surgical fashion. Infraumbilical skin incision was made in previous laparoscopy scar. While performing abdominal wall lift Veress needle was inserted. CO2 pneumoperitoneum was achieved to 15 mmHg. 12 mm trocar was inserted at the umbilicus. Intraperitoneal contents were visualized. She was positioned in Trendelenburg and left side down. 5 mm trocar was inserted in the left lower abdomen near the midline. Additional 5 mm trocar was inserted in the right upper abdomen. 0 degree laparoscope was replaced with a 5 mm 30 degree laparoscope. The appendix was identified posterior to the cecum but not definitively retrocecal. It was delivered anteriorly. It was somewhat indurated and erythematous and edematous. The mesoappendix was carefully divided with ultrasonic harmonic lin with care taken to coagulate the appendiceal artery in the process. Dissection was carried down to the appendiceal base which was relatively noninflamed. Appendix was divided at its base with the endoscopic DEANNE linear cutting stapling device. Appendix was placed within an Endo Catch retrieval device removed from the peritoneal cavity via the umbilical trocar site. Appendiceal stump staple line was inspected for hemostasis and integrity which was assured. Trocars were then removed the CO2 pneumoperitoneum was evacuated. Fascia at the umbilicus was closed with 0 Vicryl suture. Local anesthetic was infiltrated. Skin incisions closed with 4-0 Monocryl in a subcuticular fashion. Steri-Strips and dressings were applied. Condition: stable Disposition: PACU Complications:: None immediately apparent.
--- NOTE | 2025-01-02 10:22 | P.PNANES_ITS ---
[facility] Anesthesia Record Part I Anesthesia Record I Intake, IV Amount: 800 Hydration: Adequate Estimated blood loss (mL): 10 Urine output (mL): 200 Blood Products used (#): none Blood Pressure: 129/58 SaO2: 97 Pulse Rate: 76 Airway Patency: Patent Respiratory Rate: 16 Temperature: 97.5 F Patient is:: Drowsy and Stable Stable to PACU at:: 10:20
--- NOTE | 2025-01-02 11:34 | P.DS_ITS ---
<Statement entered by Luis Alberto Hartman MD - 01/04/25 12:45> Agree with the plan as outlined by the EBD TEACHER. General Admission date:: 01/02/25 Discharge date: 01/02/25 HPI HPI HPI: Patient is a 35-year-old female with past medical history of schizophrenia and homelessness with allergies to amoxicillin, aspirin, clavulanic acid, iodine, lithium, oxycodone, pertussis vaccine, promethazine, quetiapine, sulfa, tetracycline. She presents emergency department overnight with complaints of 3 days of periumbilical pain. She reports associated poor p.o. intake and constipation. Also endorses pain that radiates into her lower right and left quadrants. Emergency Department workup notable for potassium of 2.8. CT abdomen notable for appendicitis with appendiceal dilatation and periappendiceal fat stranding. Surgery was consulted in the emergency department and recommends admission for IV antibiotics and likely surgery in AM given the fact that the patient was hypokalemic and had just eaten prior to presentation and had findings of early uncomplicated appendicitis. She is admitted to the hospital service at this time. Final report on the CT scan reveals appendix with mild distention and equivocal periappendiceal fat stranding. Fluid-filled appendix from secondary low-grade gastroenterocolitis versus early appendicitis in differential considerations. Appendiceal mucosa not evaluated secondary to withholding of intravenous contrast. Hospital Course Hospital Course Hospital Course: Ms. Polk is a 35-year-old female who presented to the emergency department yesterday evening with complaints of abdominal pain, poor p.o. intake, and constipation. She denied melena, BRBPR, fever, chills. She does have a primary medical history of schizophrenia and homelessness. Workup in the emergency department was notable for hypokalemia, 2.8. CT of abdomen showed notable appendicitis with appendiceal dilation and periappendiceal fat stranding. Dr. Werner with general surgery was consulted from the emergency department who recommended admission for IV antibiotics and surgery and the morning. Hospital medicine was consulted for admission and management. Patient was admitted and received cefepime and Flagyl IV for broad-spectrum antibiotic coverage. Patient was taken for laparoscopic appendectomy this morning which was successful. No signs of infection were noted, no leukocytosis, no lab abnormalities. Hypokalemia resolved at 3.4. Patient advanced diet and tolerated without issues. Patient received [place] 5/325 mg for abdominal pain. Patient will be discharged home with [place] 5/325 mg every 6 hours as needed for moderate to severe pain and Zofran 4 mg every 8 hours as needed for nausea. Discussed at length with patient and family living situation, currently her and her significant other are living [place] in a tent with her dog. Chantal Pickard, social work, spoke with patient and family about possible mcc/placement. Patient was not agreeable to discuss or have any conversation regarding her living situation. Patient refused all resources for assistance and states she is not interested in any assistance at this time. Spoke with patient's mother who states patient cannot come stay with her. Patient significant other states she will not leave him or their dog. After much discussion patient would like to be discharged back to her current living situation. Discussed the importance of follow-up care and cleanliness at discharge. Patient states she understands. Patient should continue home medications propranolol 20 mg twice daily, risperidone 3 mg twice daily, oxcarbazepine 300 mg twice daily, duloxetine 60 mg daily. Exam Data for Last 24 hours Vital signs and Labs for Last 24 Hours: Temp Pulse Resp BP Pulse Ox O2 Del Method O2 Flow Rate 97.9 F 58 L 14 131/76 96 Room Air 2 01/02/25 10:50 01/02/25 10:50 01/02/25 10:50 01/02/25 10:50 01/02/25 10:50 01/02/25 10:50 01/02/25 10:30 Laboratory Results - last 24 hr 01/01/25 22:06: Urine Color Yellow, Urine Appearance Clear, Urine pH 6.0, Ur Specific [place] >= 1.030, Urine Protein Trace, Urine Glucose (UA) Negative, Urine Ketones Trace, Urine Blood Negative, Urine Nitrate Negative, Urine Bilirubin 2+ A, Urine Urobilinogen 0.2, Ur Leukocyte Esterase Negative, Urine RBC None, Urine WBC 5-10, Ur Squamous Epith Cells 10-20, Urine Bacteria 2+, Urine HCG, Qual Negative 01/01/25 22:52: WBC 5.7, RBC 4.59, Hgb 13.4, Hct 39.4, MCV 85.8, MCH 29.2, MCHC 34.0, RDW 13.4, Plt Count 285, MPV 10.8 H, Neut % (Auto) 39.3, Lymph % (Auto) 48.1, [place] % (Auto) 10.6 H, Eos % (Auto) 1.4, Baso % (Auto) 0.4, Neut # (Auto) 2.2, Lymph # (Auto) 2.7, [place] # (Auto) 0.6, Eos # (Auto) 0.1, Baso # (Auto) 0.0, Sodium 140, Potassium 2.8 L*, Chloride 105, Carbon Dioxide 25, Anion Gap 12.8, BUN 7, Creatinine 0.90, Estimated Creat Clear 123, Estimated GFR 71, Est GFR ( Amer) 86, Glucose 104 H, Calcium 9.1, Total Bilirubin 0.5, AST 49 H, ALT 42, Alkaline Phosphatase 63, Troponin I < 0.01, Total Protein 7.7, Albumin 4.5, Globulin 3.2, Albumin/Globulin Ratio 1.4, Lipase 53 01/02/25 07:45: WBC 4.0 L D, RBC 4.23, Hgb 12.3, Hct 37.0, MCV 87.5, MCH 29.1, MCHC 33.2, RDW 13.6, Plt Count 228, MPV 10.6 H, Neut % (Auto) 27.5 L, Lymph % (Auto) 56.8 H, [place] % (Auto) 12.2 H, Eos % (Auto) 3.0, Baso % (Auto) 0.5, Neut # (Auto) 1.1 L, Lymph # (Auto) 2.3, [place] # (Auto) 0.5, Eos # (Auto) 0.1, Baso # (Auto) 0.0, Sodium 138, Potassium 3.4 L D, Chloride 109 H, Carbon Dioxide 24, Anion Gap 8.4, BUN 6 L, Creatinine 0.80, Estimated Creat Clear 137, Estimated GFR 81, Est GFR ( Amer) 98, Glucose 91, Calcium 8.1 L I & O for Last 24 hours: Intake & Output 12/30/24 12/31/24 01/01/25 01/02/25 23:59 23:59 23:59 23:59 Intake Total 1999 Balance 1999 Weight 89.358 kg 89.358 kg Constitutional Constitutional: no acute distress, obese, chronically ill appearing, disheveled and combative *Routine HEENT Exam Head: Present normocephalic Eye: Present EOMI ENT: Present mucous membranes moist *Routine Neck Exam Neck: Present supple and full ROM; Absent JVD or lymphadenopathy *Routine Respiratory Exam Respiratory: Present CTA bilaterally, normal respiratory effort, able to speak in complete sentences and symmetric chest movement; Absent wheezes or crackles *Routine Cardiovascular Exam Cardiovascular: Present RRR; Absent murmur *Routine Abdominal Exam Abdominal: Present soft, normoactive bowel sounds and tenderness; Absent distended Comments: Postsurgical incisions x 3 clean dry and intact *Routine Extremities Exam Extremities: Present full ROM; Absent clubbing or edema *Routine Skin Exam Skin: Present intact, dry and scars *Routine Neurological Exam Neurological: Present alert, oriented X3, vision grossly intact and hearing grossly intact Routine Psychiatric Exam Psychiatric: Present anxious and agitated; Absent suicidal ideation Results Data Completed and Pending Labs on day of discharge: Labs from last 24 hours 01/02/25 01/01/25 01/01/25 07:45 22:52 22:06 WBC 4.0 L D 5.7 RBC 4.23 4.59 Hgb 12.3 13.4 Hct 37.0 39.4 MCV 87.5 85.8 MCH 29.1 29.2 MCHC 33.2 34.0 RDW 13.6 13.4 Plt Count 228 285 MPV 10.6 H 10.8 H Neut % (Auto) 27.5 L 39.3 Lymph % (Auto) 56.8 H 48.1 [place] % (Auto) 12.2 H 10.6 H Eos % (Auto) 3.0 1.4 Baso % (Auto) 0.5 0.4 Neut # (Auto) 1.1 L 2.2 Lymph # (Auto) 2.3 2.7 [place] # (Auto) 0.5 0.6 Eos # (Auto) 0.1 0.1 Baso # (Auto) 0.0 0.0 Sodium 138 140 Potassium 3.4 L D 2.8 L* Chloride 109 H 105 Carbon Dioxide 24 25 Anion Gap 8.4 12.8 BUN 6 L 7 Creatinine 0.80 0.90 Estimated Creat Clear 137 123 Estimated GFR 81 71 Est GFR ( Amer) 98 86 Glucose 91 104 H Calcium 8.1 L 9.1 Total Bilirubin 0.5 AST 49 H ALT 42 Alkaline Phosphatase 63 Troponin I < 0.01 Total Protein 7.7 Albumin 4.5 Globulin 3.2 Albumin/Globulin Ratio 1.4 Lipase 53 Urine Color Yellow Urine Appearance Clear Urine pH 6.0 Ur Specific [place] >= 1.030 Urine Protein Trace Urine Glucose (UA) Negative Urine Ketones Trace Urine Blood Negative Urine Nitrate Negative Urine Bilirubin 2+ A Urine Urobilinogen 0.2 Ur Leukocyte Esterase Negative Urine RBC None Urine WBC 5-10 Ur Squamous Epith Cells 10-20 Urine Bacteria 2+ Urine HCG, Qual Negative DS: Diagnosis Discharge Diagnosis (1) Acute appendicitis: Status: Acute Code(s): K35.80 - Unspecified acute appendicitis (2) S/P appendectomy: Status: Acute Code(s): Z90.49 - Acquired absence of other specified parts of digestive tract (3) Schizophrenia: Status: Acute Code(s): F20.9 - Schizophrenia, unspecified Meds Home Medications and Allergies Home Medications ?Medication ?Instructions ?Recorded ?Confirmed ?Type albuterol sulfate 90 mcg/actuation 2 puff inhalation Q 6H PRN 01/02/25 01/02/25 History aerosol inhaler (Ventolin HFA) Shortness Of Breath Or Wheezing cyclobenzaprine 10 mg tablet 10 mg PO Q8H PRN Muscle S pasm 01/02/25 01/02/25 History duloxetine 60 mg capsule,delayed 60 mg PO DAILY 01/02/25 History release hydrocodone 5 mg-acetaminophen 325 1 tab PO Q6H PRN pa in (scale score 01/02/25 Rx mg tablet 7-10) #17 tabs ondansetron 4 mg disintegrating 4 mg PO Q8H PRN nausea and 01/02/25 Rx tablet vomiting #12 tabs oxcarbazepine 300 mg tablet 300 mg PO BID 01/02/25 History pantoprazole 40 mg tablet,delayed 40 mg PO DAILY 01/0201/02/25 History release propranolol 20 mg tablet 20 mg PO BID 01/02/25 History rimegepant 75 mg disintegrating 75 mg PO DAILYP PRN Mi graine 01/02/25 01/02/25 History tablet (Nurtec ODT) Headache risperidone 3 mg tablet 3 mg PO BID 01/02/25 5 History trazodone 100 mg tablet 100 mg PO HS 01/02/25 History New Prescriptions to Start Prescriptions: hydrocodone-acetaminophen Alejandra Mai ondansetron Alejandra Mai Allergies Allergy/AdvReac Type Severity Reaction Status Date / Time amoxicillin (AMOXICILLIN) Allergy Unknown Unknown Verified 01/01/25 22:39 allergy reaction aspirin (ASPIRIN) Allergy Unknown Unknown Verified 01/01/25 22:39 allergy reaction clavulanic acid (CLAVULANIC Allergy Unknown Unknown Verified 01/01/25 22:39 ACID) allergy reaction iodine (IODINE) Allergy Unknown Unknown Verified 01/01/25 22:39 allergy reaction lithium (LITHIUM) Allergy Unknown Unknown Verified 01/01/25 22:39 allergy reaction oxycodone (OXYCODONE) Allergy Unknown Unknown Verified 01/01/25 22:39 allergy reaction pertussis vaccine,adsorbed Allergy Unknown Unknown Verified 01/01/25 22:39 (PERTUSSIS VACCINE,ADSORBED) allergy reaction promethazine (PROMETHAZINE) Allergy Unknown Unknown Verified 01/01/25 22:39 allergy reaction quetiapine (QUETIAPINE) Allergy Unknown Unknown Verified 01/01/25 22:39 allergy reaction Sulfa (Sulfonamide Allergy Unknown Unknown Verified 01/01/25 22:39 Antibiotics) (SULFA allergy (SULFONAMIDE ANTIBIOTICS)) reaction tetracycline (TETRACYCLINE) Allergy Unknown Unknown Verified 01/01/25 22:39 allergy reaction Discharge Plan Disposition Patient Disposition: Home, Self-Care Condition: Fair Follow up Plan Follow up with: Doug Werner MD [Staff Physician, General Surgery] - 01/19/25 9:30 am Kacey Brennan DO [Primary Care Provider, Family Practice] - 01/04/25 11:00 am Prescriptions/Medication Reconciliation: New hydrocodone-acetaminophen 5-325 mg tablet 1 tab PO Q6H PRN (Reason: pain (scale score 7-10)) Qty: 17 0RF ondansetron 4 mg tablet,disintegrating 4 mg PO Q8H PRN (Reason: nausea and vomiting) Qty: 12 0RF Continued cyclobenzaprine 10 mg tablet 10 mg PO Q8H PRN (Reason: Muscle Spasm) Patient Comments: TAKE 1 TABLET BY MOUTH EVERY 8 HOURS NEEDED oxcarbazepine 300 mg tablet 300 mg PO BID Patient Comments: TAKE 1 TABLET BY MOUTH TWICE DAILY risperidone 3 mg tablet 3 mg PO BID Patient Comments: TAKE 1 TABLET BY MOUTH TWICE DAILY trazodone 100 mg tablet 100 mg PO HS Patient Comments: TAKE 1 TABLET BY MOUTH NIGHTLY FOR 30 DAYS albuterol sulfate [Ventolin HFA] 90 mcg/actuation HFA aerosol inhaler 2 puff INHALATION Q6H PRN (Reason: Shortness Of Breath Or Wheezing) Patient Comments: INHALE 2 PUFFS BY MOUTH EVERY 6 HOURS NEEDED FOR WHEEZING OR SHORTNESS OF BREATH propranolol 20 mg tablet 20 mg PO BID Patient Comments: TAKE 1 TABLET BY MOUTH TWICE DAILY duloxetine 60 mg capsule,delayed release(DR/EC) 60 mg PO DAILY Nurtec ODT 75 mg tablet,disintegrating 75 mg PO DAILYP PRN (Reason: Migraine Headache) Patient Comments: DISSOLVE 1 TABLET BY MOUTH DAILY pantoprazole 40 mg tablet,delayed release (DR/EC) 40 mg PO DAILY Problem Reconciliation Problems Reviewed?: Yes Patient Discharge Instructions ACTIVITY: No heavy lifting DIET: advance to your usual diet Stand Alone Forms: [facility] Work Release Patient Instructions: DI for Appendicitis -- Adult Print Language: Croatian Providers Primary Care Provider: Kacey Brennan Provider: Luis Alberto Hartman Attending Provider: Luis Alberto Hartman
[2025-01-02] MEDS: 0.9 % SODIUM CHLORIDE 1000ML 1,000 ML 100 ML IV (12:23)
[2025-01-02 13:41] LABS: Microscopic,Cath URINE MICROSCOPIC (MICROSCOPIC)
--- NOTE | 2025-01-02 13:43 | P.PNANES_ITS ---
[facility] Anesthesia Record Part II Anesthesia Record Part II Discharge Time: 10:50 Destination: Medical Surgical Department PACU nurse assessment reviewed?: Yes Patient Condition:: Good Anesthesia Complications:: None Swallowing reflex intact?: Yes Airway Patency: Patent Cyanosis?: No Blood Pressure: 131/76 SaO2: 96 Respiratory Rate: 14 Pulse Rate: 58 Temperature: 97.9 F Mental Status: Alert & Oriented Pain level:: 0 Nausea and/or vomitting:: None Intake, IV Amount: 0 Hydration: Adequate
[2025-01-02 19:01] LABS: Appearance,Urine/Cath CLEAR (Clear); Bilirubin,Cath Negative (Negative); Blood, Urine/Cath Negative (Negative); Color,Urine/Cath YELLOW (Yellow); Glucose,Urine/Cath (UA) Negative (Negative); Ketones,Urine/Cath Negative (Negative); Leukocyte Esterase,Cath Negative (Negative); Nitrate,Cath Negative (Negative); PH,Urine/Cath 6.0 (5.0-8.5); Protein,Urine/Cath Negative (Negative); Specific Gravity, Urine/Cath 1.020 (1.005-1.030); Urobilinogen,Cath 0.2 EU/dl (0.2)
[2025-01-02 20:05] LABS: Bacteria,Urine/Cath TRACE /lpf
--- NOTE | 2025-01-04 10:17 | SW/DCPLANNER ---
Phoned patient x2. No answer the first time and left a call back number with name and the second time a matthew answered and stated that i have the wrong number. Roseanna MIN Store Sales Leader
--- NOTE | 2025-01-06 08:49 | PC.NURSE ---
Urine culture results forwarded to hospitalist.
== END 2025-01-02 13:40 | disposition home or self-care (01) ==
LOC: ER 23:15 → 2ND 01-02 01:21
PROVIDERS: Nurse Practitioner Acute Care; Surgery; Admitting Provider Student in an Organized Health Care Education/Training Program; Emergency Provider Emergency Medicine; PCP Student in an Organized Health Care Education/Training Program; Visit Provider Student in an Organized Health Care Education/Training Program
PROC: 0DTJ4ZZ Resection of Appendix, Percutaneous Endoscopic Approach (ICD-10-PCS; CPT 44970; principal; 2025-01-02 09:20)
DX: K35.80 Unspecified acute appendicitis (principal); F20.9 Schizophrenia, unspecified; E87.6 Hypokalemia; E66.9 Obesity, unspecified; Z68.32 Body mass index [BMI] 32.0-32.9, adult; Z90.49 Acquired absence of other specified parts of digestive tract; Z88.0 Allergy status to penicillin; Z88.6 Allergy status to analgesic agent; Z88.1 Allergy status to other antibiotic agents; Z88.8 Allergy status to other drugs, medicaments and biological substances; Z88.5 Allergy status to narcotic agent; Z88.7 Allergy status to serum and vaccine; Z88.2 Allergy status to sulfonamides; Z79.899 Other long term (current) drug therapy
CPT/HCPCS: 44970; 36415; 51702; 74176; 80048; 80053; 81001; 81025; 83690; 84484; 85025; 87086; 88304; 93005; 96361; 96374; 96375; 96376; 97162; 97166; 99285; G0378; J0690; J0692; J1100; J1836; J2003; J2250; J2270; J2405; J2704; J2795; J3010; J7030; J7120

== ENCOUNTER 2025-01-04 17:25 | Emergency (ER) | payer MEDICAID, SELFPAY ==
[2025-01-04 17:28] VITALS: BP 125/82; PULSE 88; RESP 20; TEMP 37.1; O2SAT 94; BMI 32.8
--- OUTSIDE RECORDS SUMMARY | 2025-01-04 18:03 | XMS_ITS | Clinical Summary ---
Author Organization [facility] Address [address] [place] [address] Phone Care Team Providers Care Rim Fire Priming Operator Name Role Phone Unavailable Unavailable Conditions or Problems No information available. Medications No information available. Medications Administered No information available. Allergies, Adverse Reactions, Alerts No information available. Results No information available. Plan of Care No information available. Procedures No information available. Vital Signs No information available. Immunizations No information available. Advance Directives No information available.
--- OUTSIDE RECORDS SUMMARY | 2025-01-04 18:04 | XMS_ITS | Clinical Summary ---
Author Organization [facility] Address [address] [place] [address] Care Team Providers Care Shoe Dyer Name Role Phone None, Physician Primary Care Provider Unavailabl e Allergies Active Allergy Reactions Criticality Noted Date Comments Aripiprazole 04/17/2013 Aspirin 04/17/2013 Amoxicillin-Pot Clavulanate 04/17/20 13 Iodinated Contrast Media 04/17/2013 [place] 04/17/2013 Quetiapine Fumerate 04/17/2013 Sulfa Antibiotics 04/17/2013 [...] patient's age to complete this topic Insurance [place] [id number] Care Teams Shoe Dyer Relationship Specialty Start Date End Date None, Physician PCP - General 04/17/13
--- OUTSIDE RECORDS SUMMARY | 2025-01-04 18:04 | XMS_ITS | Clinical Summary ---
Author Organization [facility] Address [address] [place] [address] Care Team Providers Care Laboratory Asst Name Role Phone Tonie Sanchez APRN Primary Care Provider [phone] Allergies Active Allergy Reactions Criticality Noted Date Comments Aripiprazole 01/09/2017 Lorazepam 01/09/2017 Amoxicillin-Pot Clavulanate 01/10/20 17 Contrast Dye (Echo Or Unknown Ct/Mr) 01/09/2017 and IV Lurasidone Hcl 01/09/2017 [place] 01/09/2017 Pertussis Vaccines 01/09/2017 Promethazine 01/09/2017 Saline [...] ANNUAL PHYSICAL 01/09/2017 HEPATITIS C SCREENING 01/09/2017 INFLUENZA VACCINE 11/18/2024 Pneumococcal Vaccine 0-49 Aged Out No longer eligible based on patient's age to complete this topic Care Teams Laboratory Asst Relationship Specialty Start Date End Date Tonie Sanchez APRN [address] [place] [id number] PCP - General Family Medicine 01/02/17
--- OUTSIDE RECORDS SUMMARY | 2025-01-04 18:04 | XMS_ITS | Clinical Summary ---
Author Organization [facility] Address [address] [place] [address] Care Team Providers Care Flight Crew Scheduler Name Role Phone Tonie Sanchez APRN Primary Care Provider [phone] Family History Medical History Relation Name Comments [...] of Treatment Not on file Care Teams Flight Crew Scheduler Relationship Specialty Start Date End Date Tonie Sanchez APRN [address] [place] [address] PCP - General 08/31/20
--- NOTE | 2025-01-04 19:18 | HMH.EDGENADL ---
Discharge Plan Disposition Patient Disposition: Eloped Chief Complaint: Abdominal Pain Prescriptions Prescriptions: No Action cyclobenzaprine 10 mg tablet 10 mg PO Q8H PRN (Reason: Muscle Spasm) Patient Comments: TAKE 1 TABLET BY MOUTH EVERY 8 HOURS NEEDED oxcarbazepine 300 mg tablet 300 mg PO BID Patient Comments: TAKE 1 TABLET BY MOUTH TWICE DAILY risperidone 3 mg tablet 3 mg PO BID Patient Comments: TAKE 1 TABLET BY MOUTH TWICE DAILY trazodone 100 mg tablet 100 mg PO HS Patient Comments: TAKE 1 TABLET BY MOUTH NIGHTLY FOR 30 DAYS albuterol sulfate [Ventolin HFA] 90 mcg/actuation HFA aerosol inhaler 2 puff INHALATION Q6H PRN (Reason: Shortness Of Breath Or Wheezing) Patient Comments: INHALE 2 PUFFS BY MOUTH EVERY 6 HOURS NEEDED FOR WHEEZING OR SHORTNESS OF BREATH propranolol 20 mg tablet 20 mg PO BID Patient Comments: TAKE 1 TABLET BY MOUTH TWICE DAILY duloxetine 60 mg capsule,delayed release(DR/EC) 60 mg PO DAILY Nurtec ODT 75 mg tablet,disintegrating 75 mg PO DAILYP PRN (Reason: Migraine Headache) Patient Comments: DISSOLVE 1 TABLET BY MOUTH DAILY pantoprazole 40 mg tablet,delayed release (DR/EC) 40 mg PO DAILY hydrocodone-acetaminophen 5-325 mg tablet 1 tab PO Q6H PRN (Reason: pain (scale score 7-10)) Qty: 17 0RF ondansetron 4 mg tablet,disintegrating 4 mg PO Q8H PRN (Reason: nausea and vomiting) Qty: 12 0RF Referrals Follow up/Referrals: Kacey Brennan DO [Primary Care Provider, Family Practice] - See instructions Clinical Impressions Clinical Impression: Eloped from emergency department Instructions Patient Instructions: DI for Acute Abdominal Pain Print Language Print Language: Citizen Of [place] Discharge ED Provider: Babita [facility] Adult HPI General Chief complaint: Abdominal Pain Stated complaint: Body swelling, hasn't urinated all day Time Seen by Provider: 01/04/25 19:18 Mode of Arrival: Ambulatory Source of Information: Patient and Parent(s) Description of Symptoms (Recalled from ER Triage Doc. by RN): Pt complains of lower abdominal pain and bladder fullness starting yesterday, but symptoms got worse this morning. Pt recently had appendectomy on 01/02, 3 total lap sites, 2 visible with noted redness, but no warmth. Pt mother states she saw drainage from two visible lap sites earlier today. History of Present Illness HPI narrative: Patient is a 35-year-old female who presented to the emergency department with abdominal pain and abdominal fullness as well as some difficulty urinating. Patient has not had any fevers. Patient has not had any nausea or vomiting. Patient has not had any troubles with bowel movements. Patient denies any chest pain or shortness of breath. Patient recently had an appendectomy on 01/02. Related Data Home Medications ?Medication ?Instructions ?Recorded ?Confirmed albuterol sulfate 90 mcg/actuation 2 puff inhalation Q6H PRN 01/02/25 01/02/25 aerosol inhaler (Ventolin HFA) Shortness Of Breath Or Wheezing cyclobenzaprine 10 mg tablet 10 mg PO Q8H PRN Muscle Spasm 01/02/25 01/02/25 duloxetine 60 mg capsule,delayed 60 mg PO DAILY 01/02/25 01/02/25 release oxcarbazepine 300 mg tablet 300 mg PO BID 01/02/25 01/02/25 pantoprazole 40 mg tablet,delayed 40 mg PO DAILY 01/02/25 01/02/25 release propranolol 20 mg tablet 20 mg PO BID 01/02/25 01/02/25 rimegepant 75 mg disintegrating 75 mg PO DAILYP PRN Migraine 01/02/25 01/02/25 tablet (Nurtec ODT) Headache risperidone 3 mg tablet 3 mg PO BID 01/02/25 01/02/25 trazodone 100 mg tablet 100 mg PO HS 01/02/25 01/02/25 Previous Rx's ?Medication ?Instructions ?Recorded hydrocodone 5 mg-acetaminophen 325 1 tab PO Q6H PRN pain (scale score 01/02/25 mg tablet 7-10) #17 tabs ondansetron 4 mg disintegrating 4 mg PO Q8H PRN nausea and 01/02/25 tablet vomiting #12 tabs Allergies Allergy/AdvReac Type Severity Reaction Status Date / Time amoxicillin (AMOXICILLIN) Allergy Unknown Unknown Verified 01/01/25 22:39 allergy reaction aspirin (ASPIRIN) Allergy Unknown Unknown Verified 01/01/25 22:39 allergy reaction clavulanic acid (CLAVULANIC Allergy Unknown Unknown Verified 01/01/25 22:39 ACID) allergy reaction iodine (IODINE) Allergy Unknown Unknown Verified 01/01/25 22:39 allergy reaction lithium (LITHIUM) Allergy Unknown Unknown Verified 01/01/25 22:39 allergy reaction oxycodone (OXYCODONE) Allergy Unknown Unknown Verified 01/01/25 22:39 allergy reaction pertussis vaccine,adsorbed Allergy Unknown Unknown Verified 01/01/25 22:39 (PERTUSSIS VACCINE,ADSORBED) allergy reaction promethazine (PROMETHAZINE) Allergy Unknown Unknown Verified 01/01/25 22:39 allergy reaction quetiapine (QUETIAPINE) Allergy Unknown Unknown Verified 01/01/25 22:39 allergy reaction Sulfa (Sulfonamide Allergy Unknown Unknown Verified 01/01/25 22:39 Antibiotics) (SULFA allergy (SULFONAMIDE ANTIBIOTICS)) reaction tetracycline (TETRACYCLINE) Allergy Unknown Unknown Verified 01/01/25 22:39 allergy reaction PFSH PFSH Disclaimer: The information contained in this section may have been updated after the patient was seen, as this information can be updated by other users. Social History (Updated 01/02/25 @ 09:42 by Iggy Banda CRNA) Smoking Status: Current every day smoker alcohol intake: never substance use type: denies use current occupational status: other Travel in the last 8 weeks?: None Have you lived/traveled outside [place] in past 30 days?: No Contact w/someone who lives/traveled outside US past 30 days?: No Exposure to someone with infectious disease in past 14 days?: No Do you have a fever (greater than 100.4 F or 38 C)?: No Have you tested positive for COVID-19?: No Exposed to someone with COVID-19 in past 14 days?: No Do you have a sore throat?: No Do you have a cough?: No Do you have any weakness?: No Do you have any diarrhea?: No Are you experiencing any unusual bleeding?: No Do you have any muscle aches/pain?: No Do you have any abdominal pain?: No Are you experiencing loss of taste or smell?: No Other Medical History Have you received the Flu Vaccine for this season: No Have you received the Pneumonia Vaccine: No ROS Obtained: Yes All systems reviewed & no additional complaints except as documented and Yes Systems reviewed as appropriate & no additional complaints except as documented Physical Exam General General appearance: alert and in no apparent distress Head Head exam: atraumatic, normocephalic and normal inspection Eye Eye exam: Present normal appearance, PERRL and EOMI; Absent scleral icterus ENT ENT exam: Present normal exam and normal external ear exam Neck Neck exam: Present normal inspection and full ROM Chest Chest inspection: Present normal inspection and symmetric chest wall rise Respiratory Respiratory exam: Present normal lung sounds bilaterally; Absent respiratory distress or wheezes Cardiovascular Cardiovascular exam: Present regular rate, normal rhythm and normal heart sounds Abdominal Exam Abdominal exam: Present soft, distention and tenderness (suprapubic abdominal tenderness. Incision sites CDI ); Absent guarding or rebound Extremities Exam Extremities exam: Present normal inspection and full ROM Back Exam Back exam: Present normal inspection and full ROM Neurological Exam Neurological exam: Present alert and oriented X3 Psychiatric Psychiatric exam: Present normal affect and normal mood Skin Skin exam: Present warm and dry Medical Decision Making Medical Records Medical records reviewed: Yes I reviewed the patient's medical records. Screening: Per USPSTF and CDC recommendations, given the prevalence of disease in our region, it is our hospital?s policy to screen for HIV and viral Hepatitis for all patients aged 18 and over and those with ongoing risk factors. [place] Inquiry Pt receiving controlled substance: No Vital Signs: 01/04/25 17:28 01/04/25 20:00 01/04/25 20:31 Temperature 98.7 F Temperature Source Temporal Artery Scan Pulse Rate 87 Pulse Rate [Left] 88 Respiratory Rate 20 Blood Pressure 136/91 H 139/90 Blood Pressure [Right Arm] 125/82 Blood Pressure Mean 97 93 Blood Pressure Mean [Right Arm] 96 Blood Pressure Source [Right Arm] Automatic Cuff 02 Sat by Pulse Oximetry 94 L 99 Oxygen Delivery Method Room Air 01/04/25 21:46 Temperature 0 F L Temperature Source Pulse Rate 0 L Pulse Rate [Left] Respiratory Rate 0 L Blood Pressure 000/000 L Blood Pressure [Right Arm] Blood Pressure Mean Blood Pressure Mean [Right Arm] Blood Pressure Source [Right Arm] 02 Sat by Pulse Oximetry Oxygen Delivery Method Lab Data Lab results reviewed: Yes I reviewed the patient's lab results. Lab Results 01/04/25 19:20: WBC 5.7 D, RBC 4.70, Hgb 13.4, Hct 41.1, MCV 87.4, MCH 28.5, MCHC 32.6, RDW 13.6, Plt Count 262, MPV 11.1 H, Neut % (Auto) 35.2 L, Lymph % (Auto) 53.2 H, [place] % (Auto) 10.7 H, Eos % (Auto) 0.4, Baso % (Auto) 0.5, Neut # (Auto) 2.0, Lymph # (Auto) 3.0, [place] # (Auto) 0.6, Eos # (Auto) 0.0, Baso # (Auto) 0.0, Sodium 139, Potassium 3.8, Chloride 104, Carbon Dioxide 28, Anion Gap 10.8, BUN 7, Creatinine 0.80, Estimated Creat Clear 137, Estimated GFR 81, Est GFR ( Amer) 98, Glucose 97, Calcium 9.1, Total Bilirubin 0.5, AST 39 H, ALT 37, Alkaline Phosphatase 38, Total Protein 7.5, Albumin 4.4, Globulin 3.1, Albumin/Globulin Ratio 1.4, Serum HCG, Qual Negative 01/04/25 20:50: Urine Color Yellow, Urine Appearance Clear, Urine pH 7.0, Ur Specific [place] <= 1.005, Urine Protein Negative, Urine Glucose (UA) Negative, Urine Ketones Negative, Urine Blood Negative, Urine Nitrate Negative, Urine Bilirubin Negative, Urine Urobilinogen 0.2, Ur Leukocyte Esterase Negative, Urine RBC Occasional, Urine WBC Occasional, Ur Squamous Epith Cells 20-50, Urine Bacteria 2+, Urine Yeast Occasional 01/04/25 19:20 01/04/25 19:20 Orders (Tests/Meds): ED MEDICATIONS Discontinued Medications Generic Name Dose Route Start Last Admin Trade Name Freq PRN Reason Stop Dose Admin Ketorolac Tromethamine 30 mg 01/04/25 19:34 01/04/25 19:50 Ketorolac 30mg/Ml Vial IV 01/04/25 19:35 30 mg ONCE ONE Administration Ondansetron HCl 4 mg 01/04/25 19:36 01/04/25 19:47 Ondansetron 4mg/2ml Vial IM 01/04/25 19:37 Not Given ONCE ONE Ondansetron HCl 4 mg 01/04/25 19:46 01/04/25 19:48 Ondansetron 4mg/2ml Vial IV 01/04/25 19:47 4 mg ONCE ONE Administration ORDERS Category Date Time Status CT abdomen pelvis wo con Stat Cat Scan 01/04/25 19:34 Completed CBC w/Auto Diff [Complete Blood Count Auto Diff] Stat Lab 01/04/25 19:20 Completed CMP [Comprehensive Metabolic Panel] Stat Lab 01/04/25 19:20 Completed HCG Qualitative, Serum Stat Lab 01/04/25 19:20 Completed UA [Urinalysis and Microscopic] Stat Lab 01/04/25 20:50 Completed Urine Culture Stat Micro 01/04/25 20:50 Completed Medical Decision Narrative: Patient is an otherwise healthy 35-year-old female who had an appendectomy on January 02 who presented to the emergency department with lower abdominal pain and difficulty urinating. On arrival, patient was hemodynamically stable with unremarkable vital signs. Differential includes but not limited to: Intra-abdominal abscess, urinary tract infection, postoperative pain, bowel obstruction, amongst others. Patient's labs were reviewed and interpreted by myself: CBC showed no leukocytosis, hemoglobin is stable. CMP was unremarkable. UA showed no evidence of infection. Lipase was normal. Patient was given nausea medications and medications for pain, prior to patient's CT scan being read by radiology, patient decided to leave AMA. Critical Care Critical Care Time Critical Care Time: No
--- NOTE | 2025-01-04 19:34 | CT_ITS ---
PROCEDURE INFORMATION: Exam: CT Abdomen And Pelvis Without Contrast Exam date and time: 01/04/2025 8:16 PM Age: 35 years old Clinical indication: Abdominal pain; Additional info: Abdominal pain S/P appendectomy TECHNIQUE: Imaging protocol: Computed tomography of the abdomen and pelvis without contrast. Radiation optimization: All CT scans at this facility use at least one of these dose optimization techniques: automated exposure control; mA and/or kV adjustment per patient size (includes targeted exams where dose is matched to clinical indication); or iterative reconstruction. COMPARISON: CT ABDOMEN PELVIS WO CON 01/01/2025 11:19 PM FINDINGS: Lungs: Lung bases are clear. Liver: Normal. No mass. Gallbladder and biliary ducts: Status post cholecystectomy. No evident bile duct dilatation allowing for prior cholecystectomy. Pancreas: Normal. No ductal dilation. Spleen: Normal. No splenomegaly. Adrenal glands: Normal. No mass. Kidneys and ureters: Normal. No hydronephrosis. Stomach and bowel: Fluid distended small bowel loops without significant dilatation noted. Associated fluid throughout the colon noted. Stomach moderately distended with food and fluid. Appendix: Interval appendectomy. Intraperitoneal space: Small amount of fluid noted in the right lower quadrant just posterior and inferior to the cecum. Vasculature: Unremarkable. No abdominal aortic aneurysm. Lymph nodes: Unremarkable. No enlarged lymph nodes. Urinary bladder: Unremarkable as visualized. Reproductive: Unremarkable as visualized. Bones/joints: Bilateral femoral head AVN redemonstrated. No evident articular collapse. Soft tissues: Unremarkable. IMPRESSION: 1. Fluid distended small bowel loops and associated fluid throughout the colon suggesting possible gastroenteritis with associated diarrheal component. Associated distended stomach with food and fluid that may be due to recent ingestion but might also reflect hypoperistalsis or gastroparesis. Not noted above are extensive multiple linear bandlike and stick like relatively high dense opacities within the stomach contents presumably something ingested of uncertain origin and can be correlated clinically. 2. Bilateral femoral head AVN redemonstrated. No evident articular collapse.
[2025-01-04 19:45] LABS: Hematocrit 41.1 % (37.0-47.0); Hemoglobin 13.4 g/dL (12.2-16.2); Immature Granulocytes % 0 %; Mean Corpuscular HGB Conc 32.6 g/dL (31.8-35.4); Mean Corpuscular Hemoglobin 28.5 pg (27.0-31.2); Mean Corpuscular Volume 87.4 fl (81-99); Nucleated Red Blood Cells % 0 %; Platelet Count 262 K/mm3 (142-424); Red Blood Count 4.70 M/mm3 (4.20-5.40); Red Cell Distribution Width-SD 43.7 fL; White Blood Count 5.7 K/mm3 (4.8-10.8)
[2025-01-04] MEDS: ONDANSETRON 4MG/2ML VIAL 4 MG IV (19:48)
[2025-01-04] MEDS: KETOROLAC 30MG/ML VIAL 30 MG IV (19:50)
[2025-01-04 19:55] LABS: Alanine Aminotransferase 37 U/L (12-78); Albumin Level 4.4 g/dl (3.5-5.0); Albumin/Globulin Ratio 1.4 (1.1-1.8); Alkaline Phosphatase 38 U/L (38-126); Anion Gap 10.8 mEq/L (5-15); Aspartate Amino Transferase 39 U/L (14-36); Bilirubin,Total 0.5 mg/dl (0.2-1.3); Blood Urea Nitrogen 7 mg/dl (7-17); Calcium 9.1 mg/dl (8.4-10.2); Carbon Dioxide 28 mmol/L (22.0-30.0); Chloride 104 mmol/L (98-107); Creatinine Clearance Estimated 137 mL/min (50-200); Creatinine,Serum 0.80 mg/dl (0.52-1.04); Estimated Glomerular Filt Rate 81 ml/min (>60); GFR (African American) 98 ML/MIN (>60); Globulin 3.1 g/dL (1.3-3.2); Glucose 97 mg/dl (74-100); Potassium 3.8 mmoL/L (3.5-5.1); Sodium 139 mmol/L (136-145); Total Protein,Serum 7.5 g/dl (6.3-8.2)
[2025-01-04 19:59] LABS: HCG Qualitative, Serum Negative (Negative)
[2025-01-04 20:00] VITALS: BP 136/91
[2025-01-04 20:31] VITALS: BP 139/90; PULSE 87; O2SAT 99
[2025-01-04 21:03] LABS: Microscopic, Urine URINE MICROSCOPIC (MICROSCOPIC)
[2025-01-04 21:05] LABS: Bilirubin,Urine Negative (Negative); Color,Urine YELLOW (Yellow); Glucose,Urine (UA) Negative (Negative); Ketones,Urine Negative (Negative); Leukocyte Esterase,Urine Negative (Negative); PH,Urine 7.0 (5.0-8.5); Protein,Urine Negative (Negative); Specific Gravity, Urine <= 1.005 (1.005-1.030); Urobilinogen,Urine 0.2 EU/dl (0.2)
[2025-01-04 21:26] LABS: RBC,Urine Occasional #/hpf (0-3); Squamous Epithelial Cell,Urine 20-50 #/hpf (0-5); WBC,Urine Occasional #/hpf (0-3)
[2025-01-04 21:27] LABS: Bacteria,Urine 2+ /lpf
--- NOTE | 2025-01-04 21:37 | PC.NURSE ---
Staff stated that patient had left. I went to out back door and came into lobby looking for patient. Upon entering lobby patient was walking toward the door. Tried to talk to patient to come back to room or at least sign AMA paper. Patient stated that she would not and kept walking toward door.
--- NOTE | 2025-01-04 21:44 | PC.NURSE ---
[id number] Pt standing in hallway asking to speak with provider outside room 4. Provided advises patient that she needs to tend to a critical pt and will speak with her shortly. This RN requests patient to return to room to maintain other patient's privacy
[2025-01-04 21:46] VITALS: BP 000/000; PULSE 0; RESP 0; TEMP -17.7; TEMP 0; O2SAT 0
== END 2025-01-04 21:48 | disposition left against medical advice (07) ==
PROVIDERS: Emergency Provider Student in an Organized Health Care Education/Training Program; PCP Student in an Organized Health Care Education/Training Program
DX: R10.30 Lower abdominal pain, unspecified (principal); R39.198 Other difficulties with micturition
CPT/HCPCS: 74176; 80053; 81001; 84703; 85025; 87086; 96374; 96375; 99284; J1885; J2405

== ENCOUNTER 2025-01-25 16:29 | Emergency (ER) | payer MEDICAID, SELFPAY ==
[2025-01-25 16:47] VITALS: BP 156/89; PULSE 87; RESP 18; TEMP 37.1; O2SAT 100; BMI 32.8
[2025-01-25 18:14] VITALS: BP 157/108; PULSE 70; RESP 18; O2SAT 100
--- NOTE | 2025-01-25 18:27 | HMH.EDGENADL ---
Discharge Plan Disposition Patient Disposition: Home, Self-Care Condition: Good Prescriptions Prescriptions: New naproxen 500 mg tablet 500 mg PO BID Qty: 30 0RF No Action cyclobenzaprine 10 mg tablet 10 mg PO Q8H PRN (Reason: Muscle Spasm) Patient Comments: TAKE 1 TABLET BY MOUTH EVERY 8 HOURS NEEDED oxcarbazepine 300 mg tablet 300 mg PO BID Patient Comments: TAKE 1 TABLET BY MOUTH TWICE DAILY risperidone 3 mg tablet 3 mg PO BID Patient Comments: TAKE 1 TABLET BY MOUTH TWICE DAILY trazodone 100 mg tablet 100 mg PO HS Patient Comments: TAKE 1 TABLET BY MOUTH NIGHTLY FOR 30 DAYS albuterol sulfate [Ventolin HFA] 90 mcg/actuation HFA aerosol inhaler 2 puff INHALATION Q6H PRN (Reason: Shortness Of Breath Or Wheezing) Patient Comments: INHALE 2 PUFFS BY MOUTH EVERY 6 HOURS NEEDED FOR WHEEZING OR SHORTNESS OF BREATH propranolol 20 mg tablet 20 mg PO BID Patient Comments: TAKE 1 TABLET BY MOUTH TWICE DAILY duloxetine 60 mg capsule,delayed release(DR/EC) 60 mg PO DAILY Nurtec ODT 75 mg tablet,disintegrating 75 mg PO DAILYP PRN (Reason: Migraine Headache) Patient Comments: DISSOLVE 1 TABLET BY MOUTH DAILY pantoprazole 40 mg tablet,delayed release (DR/EC) 40 mg PO DAILY hydrocodone-acetaminophen 5-325 mg tablet 1 tab PO Q6H PRN (Reason: pain (scale score 7-10)) Qty: 17 0RF ondansetron 4 mg tablet,disintegrating 4 mg PO Q8H PRN (Reason: nausea and vomiting) Qty: 12 0RF Referrals Follow up/Referrals: Provider,Referral, MD [Primary Care Provider, Medical] - See instructions Activity Restrictions/Add. Instructions Additional Instructions/Restrictions: Cotinue to monitor your symptyoms. If your skin infection is worsening in 3 days, please return to the ER for further evaluation. Clinical Impressions Clinical Impression: MRSA infection Instructions Patient Instructions: DI for Staph Infection Print Language Print Language: Lao Discharge ED Provider: Rolando Mccarthy Adult HPI <Jihan Ingram (ED), [employer] - Last Filed: 01/25/25 19:09> General Chief complaint: Skin/Abscess/Foreign Body Stated complaint: several sores from surg Time Seen by Provider: 01/25/25 18:05 Mode of Arrival: Ambulatory Source of Information: Patient Description of Symptoms (Recalled from ER Triage Doc. by RN): Pt presents for evaluation of possible skin infection to mutliple site. Pt states her surgical incision is draining to her umbilical area, and had wounds to her abdomen and left leg. Pt states she was swimming in the river after having her appendix removed on jan 02 History of Present Illness HPI narrative: 35-year-old female presents to the ED today for complaint of her umbilicus surgical site coming open. She had an appendectomy on the of last month and says it came open. She wants a IV antibiotic because she says that pill antibiotics do not work for her. Patient is homeless and says she has had staph before and knows that her body does not except antibiotics like everyone else states. Patient also has a spot that has erythema around it on her left knee and on her right lower abdomen. She is sure this is MRSA. Patient tells me that her incision and her umbilicus needs to be sutured up or something. Related Data Home Medications ?Medication ?Instructions ?Recorded ?Confirmed albuterol sulfate 90 mcg/actuation 2 puff inhalation Q6H PRN 01/02/25 01/02/25 aerosol inhaler (Ventolin HFA) Shortness Of Breath Or Wheezing cyclobenzaprine 10 mg tablet 10 mg PO Q8H PRN Muscle Spasm 01/02/25 01/02/25 duloxetine 60 mg capsule,delayed 60 mg PO DAILY 01/02/25 01/02/25 release oxcarbazepine 300 mg tablet 300 mg PO BID 01/02/25 01/02/25 pantoprazole 40 mg tablet,delayed 40 mg PO DAILY 01/02/25 01/02/25 release propranolol 20 mg tablet 20 mg PO BID 01/02/25 01/02/25 rimegepant 75 mg disintegrating 75 mg PO DAILYP PRN Migraine 01/02/25 01/02/25 tablet (Nurtec ODT) Headache risperidone 3 mg tablet 3 mg PO BID 01/02/25 01/02/25 trazodone 100 mg tablet 100 mg PO HS 01/02/25 01/02/25 Previous Rx's ?Medication ?Instructions ?Recorded hydrocodone 5 mg-acetaminophen 325 1 tab PO Q6H PRN pain (scale score 01/02/25 mg tablet 7-10) #17 tabs ondansetron 4 mg disintegrating 4 mg PO Q8H PRN nausea and 01/02/25 tablet vomiting #12 tabs naproxen 500 mg tablet 500 mg PO BID #30 tabs 01/25/25 Allergies Allergy/AdvReac Type Severity Reaction Status Date / Time amoxicillin (AMOXICILLIN) Allergy Unknown Unknown Verified 01/01/25 22:39 allergy reaction aspirin (ASPIRIN) Allergy Unknown Unknown Verified 01/01/25 22:39 allergy reaction clavulanic acid (CLAVULANIC Allergy Unknown Unknown Verified 01/01/25 22:39 ACID) allergy reaction iodine (IODINE) Allergy Unknown Unknown Verified 01/01/25 22:39 allergy reaction lithium (LITHIUM) Allergy Unknown Unknown Verified 01/01/25 22:39 allergy reaction oxycodone (OXYCODONE) Allergy Unknown Unknown Verified 01/01/25 22:39 allergy reaction pertussis vaccine,adsorbed Allergy Unknown Unknown Verified 01/01/25 22:39 (PERTUSSIS VACCINE,ADSORBED) allergy reaction promethazine (PROMETHAZINE) Allergy Unknown Unknown Verified 01/01/25 22:39 allergy reaction quetiapine (QUETIAPINE) Allergy Unknown Unknown Verified 01/01/25 22:39 allergy reaction Sulfa (Sulfonamide Allergy Unknown Unknown Verified 01/01/25 22:39 Antibiotics) (SULFA allergy (SULFONAMIDE ANTIBIOTICS)) reaction tetracycline (TETRACYCLINE) Allergy Unknown Unknown Verified 01/01/25 22:39 allergy reaction PFSH <Jihan Ingram (ED), [employer] - Last Filed: 01/25/25 19:09> PFS Disclaimer: The information contained in this section may have been updated after the patient was seen, as this information can be updated by other users. Social History (Updated 01/02/25 @ 09:42 by Iggy Banda CRNA) Smoking Status: Current every day smoker alcohol intake: never substance use type: denies use current occupational status: other Travel in the last 8 weeks?: None Have you lived/traveled outside [place] in past 30 days?: No Contact w/someone who lives/traveled outside US past 30 days?: No Exposure to someone with infectious disease in past 14 days?: No Do you have a fever (greater than 100.4 F or 38 C)?: No Have you tested positive for COVID-19?: No Exposed to someone with COVID-19 in past 14 days?: No Do you have a sore throat?: No Do you have a cough?: No Do you have any weakness?: No Do you have any diarrhea?: No Are you experiencing any unusual bleeding?: No Do you have any muscle aches/pain?: No Do you have any abdominal pain?: No Are you experiencing loss of taste or smell?: No Other Medical History Have you received the Flu Vaccine for this season: No Have you received the Pneumonia Vaccine: No <Jihan Ingram (ED), [employer] - Last Filed: 01/25/25 19:09> ROS Obtained: Yes Systems reviewed as appropriate & no additional complaints except as documented Constitutional Constitutional: Reports as per HPI Physical Exam <Jihan Ingram (ED), [employer] - Last Filed: 01/25/25 19:09> General General appearance: alert and in no apparent distress Head Head exam: normocephalic Eye Eye exam: Present PERRL and EOMI ENT ENT exam: Present mucous membranes moist Neck Neck exam: Present full ROM and trachea midline Respiratory Respiratory exam: Present normal lung sounds bilaterally Cardiovascular Cardiovascular exam: Present regular rate, normal rhythm, +S1 and +S2 Abdominal Exam Abdominal exam: Present soft and normal bowel sounds Neurological Exam Neurological exam: Present alert and oriented X3 Skin Skin exam: Present warm, dry and other (Erythema around a scab on her left knee, erythema around a scabbed area on her right lower abdomen and her umbilicus incision site from her appendix is erythematous and open it does have some drainage) Medical Decision Making <Jihan Ingram (ED), [employer] W[employer]DER - Last Filed: 01/25/25 19:09> Medical Records Screening: Per USPSTF and CDC recommendations, given the prevalence of disease in our region, it is our hospital?s policy to screen for HIV and viral Hepatitis for all patients aged 18 and over and those with ongoing risk factors. Froylan Inquiry Pt receiving controlled substance: No Froylan was queried for this patient: No Vital Signs: 01/25/25 16:47 01/25/25 18:14 Temperature 98.7 F Temperature Source Oral Pulse Rate 70 Pulse Rate [Right] 87 Respiratory Rate 18 18 Blood Pressure 157/108 H Blood Pressure [Right Arm] 156/89 H Blood Pressure Mean [Right Arm] 111 Blood Pressure Source Automatic Cuff Blood Pressure Source [Right Arm] Automatic Cuff Blood Pressure Position Sitting Blood Pressure Position [Right Arm] Sitting 02 Sat by Pulse Oximetry 100 100 Oxygen Delivery Method Room Air Room Air Orders (Tests/Meds): ED MEDICATIONS Discontinued Medications Generic Name Dose Route Start Last Admin Trade Name Augusto PRN Reason Stop Dose Admin Acetaminophen 1,000 mg 01/25/25 18:23 01/25/25 18:58 Acetaminophen 500mg Tab PO 01/25/25 18:24 1,000 mg ONCE ONE Administration Hydromorphone HCl 1 mg 01/25/25 19:28 01/25/25 19:33 Hydromorphone 2mg/Ml Syringe IV 01/25/25 19:29 1 mg ONCE ONE Administration Dalbavancin 1,500 mg/ Dextrose 250 mls @ 500 mls/hr 01/25/25 18:32 01/25/25 20:06 IV 01/25/25 18:33 Infused ONCE ONE Infusion Ondansetron HCl 4 mg 01/25/25 20:13 01/25/25 20:15 Ondansetron 4mg/2ml Vial IV 01/25/25 20:14 4 mg ONCE ONE Administration ORDERS Category Date Time Status Wound Culture and Gram Stain Stat Micro 01/25/25 18:10 Received Medical Decision Narrative: Patient is a 35-year-old female who arrives to the ED for evaluation of MRSA to the 2 areas, erythema and an open area to her umbilicus incision. Patient is hemodynamically stable and afebrile. Initial workup will include wound culture of the umbilicus site drainage. Differential diagnosis includes MRSA, rash, bug bites, among others. Initial intervention includes Tylenol for discomfort. Patient was evaluated by Dr. Mccarthy as well. Dr. Mccarthy offered dalbavancin as an option for patient. Medication ordered for patient. Of note patient very argumentative with staff about treatment, about labs being drawn and about IV placement. I did try to educate patient on these things. I educated patient on her wound cultures and that they take usually 2 to 3 days to return with antibiotic resistance or susceptibility report. I explained that we would call her with results. I also explained that she needs to keep her lap sites clean with soap and water and the best she could. I explained that the laparoscopic diabetic site at her umbilicus needs to be cleaned with soap and water but not re-sewn as this would create a superinfection if it were to be sewn almost a month after surgery. Patient's getting her antibiotics currently and will be discharged afterwards. <Rolando Mccarthy DO - Last Filed: 01/25/25 20:39> Medical Records Medical records reviewed: Yes I reviewed the patient's medical records. Vital Signs: 01/25/25 16:47 01/25/25 18:14 Temperature 98.7 F Temperature Source Oral Pulse Rate 70 Pulse Rate [Right] 87 Respiratory Rate 18 18 Blood Pressure 157/108 H Blood Pressure [Right Arm] 156/89 H Blood Pressure Mean [Right Arm] 111 Blood Pressure Source Automatic Cuff Blood Pressure Source [Right Arm] Automatic Cuff Blood Pressure Position Sitting Blood Pressure Position [Right Arm] Sitting 02 Sat by Pulse Oximetry 100 100 Oxygen Delivery Method Room Air Room Air Orders (Tests/Meds): ED MEDICATIONS Discontinued Medications Generic Name Dose Route Start Last Admin Trade Name Freq PRN Reason Stop Dose Admin Acetaminophen 1,000 mg 01/25/25 18:23 01/25/25 18:58 Acetaminophen 500mg Tab PO 01/25/25 18:24 1,000 mg ONCE ONE Administration Hydromorphone HCl 1 mg 01/25/25 19:28 01/25/25 19:33 Hydromorphone 2mg/Ml Syringe IV 01/25/25 19:29 1 mg ONCE ONE Administration Dalbavancin 1,500 mg/ Dextrose 250 mls @ 500 mls/hr 01/25/25 18:32 01/25/25 20:06 IV 01/25/25 18:33 Infused ONCE ONE Infusion Ondansetron HCl 4 mg 01/25/25 20:13 01/25/25 20:15 Ondansetron 4mg/2ml Vial IV 01/25/25 20:14 4 mg ONCE ONE Administration ORDERS Category Date Time Status Wound Culture and Gram Stain Stat Micro 01/25/25 18:10 Received Medical Decision Narrative: Patient is a 35-year-old female who arrives to the ED for evaluation of MRSA to the 2 areas, erythema and an open area to her umbilicus incision. Patient is hemodynamically stable and afebrile. Initial workup will include wound culture of the umbilicus site drainage. Differential diagnosis includes MRSA, rash, bug bites, among others. Initial intervention includes Tylenol for discomfort. Patient was evaluated by Dr. Mccarthy as well. Dr. Mccarthy offered dalbavancin as an option for patient. Medication ordered for patient. Of note patient very argumentative with staff about treatment, about labs being drawn and about IV placement. I did try to educate patient on these things. I educated patient on her wound cultures and that they take usually 2 to 3 days to return with antibiotic resistance or susceptibility report. I explained that we would call her with results. I also explained that she needs to keep her lap sites clean with soap and water and the best she could. I explained that the laparoscopic diabetic site at her umbilicus needs to be cleaned with soap and water but not re-sewn as this would create a superinfection if it were to be sewn almost a month after surgery. Patient's getting her antibiotics currently and will be discharged afterwards. I was consulted by the DAMI, and we discussed the complexity of problems being addressed. I approved the treatment and management plan for this patient's care in the emergency department, thus performing a substantive portion of the medical decision making. I assumed care of this patient from the DAMI. Patient has multiple lesions on her legs and abdomen where there is significant erythema with a pustule in the center consistent with staph infection. Patient states that she is allergic to typical antibiotics that would cover staph infections including tetracyclines and Bactrim. She states that she has required admission in the past for vancomycin therapy. Therefore we offered the patient dalbavancin and she was agreeable. Patient was administered 1500 mg of dalbavancin and tolerated this well. While she was in the emergency department we treated her pain with Dilaudid. We will send her a prescription for naproxen for pain. I have given her return precautions in the event that she develops worsening skin lesions and fevers. At this time all questions have and answered and all parties are agreeable with the decision to discharge Rolando Mccarthy, DO Critical Care <Jihan Ingram (ED), [employer]TER WELDER - Last Filed: 01/25/25 19:09> Critical Care Time Critical Care Time: No
[2025-01-25] MEDS: DALBAVANCIN HCL 1,500 MG in DEXTROSE 5 % IN WATER 250 ML 500 MG IV (18:58)
[2025-01-25] MEDS: ACETAMINOPHEN 500MG TAB 1000 MG PO (18:58)
[2025-01-25] MEDS: HYDROMORPHONE 2MG/ML SYRINGE 1 MG IV (19:33)
[2025-01-25] MEDS: ONDANSETRON 4MG/2ML VIAL 4 MG IV (20:15)
[2025-01-25 20:42] VITALS: BP 149/74; PULSE 78; RESP 16; TEMP 37; O2SAT 97
--- NOTE | 2025-01-28 09:45 | PC.NURSE ---
Final wound culture/gram stain discussed with . No change needed to her treatment.
== END 2025-01-25 20:41 | disposition home or self-care (01) ==
PROVIDERS: Emergency Provider Student in an Organized Health Care Education/Training Program
DX: T81.49XA Infection following a procedure, other surgical site, initial encounter (principal); A49.02 Methicillin resistant Staphylococcus aureus infection, unspecified site; L98.9 Disorder of the skin and subcutaneous tissue, unspecified; Z90.89 Acquired absence of other organs; Z59.00 Homelessness unspecified
CPT/HCPCS: 87070; 87077; 87186; 87205; 96374; 96375; 99283; 99284; J0875; J1171; J2405; J7060